=== PATIENT | female | born 1945 | race Hispanic/Latino ===

== ENCOUNTER 2017-03-02 17:23 | Inpatient (IN) | payer MEDICARE, OTHER ==
[2017-03-02 17:24] VITALS: BMI 29.2
[2017-03-02] MEDS ORDERED: Aspirin 325 mg EC Tablets PO STA (17:29)
[2017-03-02] MEDS ORDERED: Heparin25000 units/250ml 1/2NS 25,000 UNITS/250 ML BAG IV STA (17:29)
--- NOTE | 2017-03-02 17:33 | C.PDOC ---
History Of Present Illness 72-year-old female, PMHx includes Hypertension and Diabetes, presents to the emergency department via EMS with complaints of chest pain. patient states she has been experiencing left-sided chest pain that started at 01:00 this morning. Pain is waxing/waning in nature, gradually worsening. Patient notes associated nausea, and denies Hx of similar. EMS reports gave patient 324 ASA and 250mL fluids. Patients initial BP showed 80/40, and repeat 158/75. Denies numbness/ weakness, vomiting, fevers, chills, dizziness, back pain, or any other associated symptoms. No other complaints at this time. PMD Tawanda Bennett MD. Chief Complaint (Nursing): Chest Pain Past Medical History Vital Signs: Last Vital Signs Temp 97.9 F 03/02/17 17:25 Pulse 70 03/02/17 17:42 Resp 18 03/02/17 17:42 BP 171/92 H 03/02/17 17:42 Pulse Ox 100 03/02/17 17:42 - Medical History PMH: Anemia, Anxiety, Arthritis (NECK AND BACK), Asthma, Diverticulitis, HTN, Hypercholesterolemia (Does not take medications), Pneumonia, Sleep Apnea Denies: Chronic Kidney Disease Family History: States: Unknown Family Hx - Social History Hx Alcohol Use: No Hx Substance Use: No - Immunization History Hx Influenza Vaccination: No Hx Pneumococcal Vaccination: No Review Of Systems Except As Marked, All Systems Reviewed And Found Negative. Constitutional: Negative for: Fever, Chills Cardiovascular: Positive for: Chest Pain Respiratory: Negative for: Shortness of Breath Gastrointestinal: Positive for: Nausea. Negative for: Vomiting, Abdominal Pain Musculoskeletal: Negative for: Back Pain Neurological: Negative for: Weakness, Numbness, Headache, Dizziness Physical Exam - Physical Exam Appears: Non-toxic, No Acute Distress Skin: Warm, Dry, No Rash Head: Atraumatic, Normacephalic Eye(s): bilateral: Normal Inspection, PERRL Nose: Normal Oral Mucosa: Moist Lips: Normal Appearing Neck: Normal ROM Chest: Symmetrical Cardiovascular: Rhythm Regular, No Murmur Respiratory: Normal Breath Sounds, No Accessory Muscle Use Gastrointestinal/Abdominal: Soft, No Tenderness Extremity: Normal ROM Neurological/Psych: Oriented x3, Normal Speech, Other (no focal def) ED Course And Treatment - Laboratory Results Result Diagrams: 03/02/17 17:34 03/02/17 17:34 ECG: Interpreted By Me ECG Rhythm: ST/T Changes ECG Interpretation: Abnormal Interpretation Of ECG: INF WALL OR Rate From EC - Radiology CXR: Interpreted by Me CXR Interpretation: Yes: No Acute Disease Progress - Re-Evaluation Re-evaluation Note: 03/02/17 17:19 D/W DR BOYD ADVISED OF EMS EKG. PT EN ROUTE TO ER. WANTS CALLB 03/02/17 17:23 d/w dr boyd AWARE OF ER FINDINGS. BRILLENTA, HEPARIN, PT TO CATH 03/02/17 17:30 D/W DR Tawanda ROA MED ACTIMIZE ARCHITECT WILL ADMIT PT STATES PRIOR HO "MILD ALLERGY" TO CT DYE. SOLUMEDROL GIVEN; DR SIMMONS AT BEDSIDE AND AWARE, STATES SHE WILL ADVISE DR VINSON OF ALLERGY AND SOLU-MEDROL GIVEN 03/02/17 17:35 03/02/17 17:35 - Data Reviewed Data Reviewed: Lab, Diagnostic imaging, EKG Disposition Counseled Patient/Family Regarding: Studies Performed, Diagnosis - Disposition Disposition: HOSPITALIZED Disposition Time: 17:33 Condition: SERIOUS - POA Present On Arrival: None - Clinical Impression Clinical Impression: STEMI (ST elevation myocardial infarction) - Scribe Statement The provider has reviewed the documentation as recorded by the Scribe (Tristen Ritter) All medical record entries made by the Scribe were at my direction and personally dictated by me. I have reviewed the chart and agree that the record accurately reflects my personal performance of the history, physical exam, medical decision making, and the department course for this patient. I have also personally directed, reviewed, and agree with the discharge instructions and disposition. Decision To Admit - Pt Status Changed To: Hospital Disposition Of: Inpatient - Admit Certification Admit to Inpatient:: After my assessment, the patient will require hospitalization for at least two midnights. This is because of the severity of symptoms shown, intensity of services needed, and/or the medical risk in this patient being treated as an outpatient. - InPatient: Physician Admission Certification: I certify that this patient requires 2 or more midnights of care for the following reason:: SEE NOTE - . Bed Request Type: ICU Admitting Physician: Anthony Roa Patient Diagnosis: STEMI (ST elevation myocardial infarction)
[2017-03-02 17:41] LABS: BASO # 0.1 K/uL (0.0-0.2); BASO % 0.5 % (0.0-2.0); EOS # 0.7 K/uL (0.0-0.7); EOS % 4.7 % (0.0-4.0); HEMATOCRIT 44.5 % (34.0-47.0); LYMPH # 6.2 K/uL (1.0-4.3); LYMPH % 44.5 % (20.0-40.0); MEAN CELL VOLUME 90.8 fL (81.0-99.0); MEAN CORPUSCULAR HEMOGLOBIN 31.4 pg (27.0-31.0); MEAN CORPUSCULAR HGB CONC 34.5 g/dL (33.0-37.0); MEAN PLATELET VOLUME 8.7 fL (7.2-11.7); MONO # 1.4 K/uL (0.0-0.8); MONO % 9.7 % (0.0-10.0); NRBC % 0.1 % (0.0-2.0)
[2017-03-02] MEDS ORDERED: DiphenhydrAMINE 50 mg/ml Inj ONE (17:42)
[2017-03-02] MEDS ORDERED: Lidocaine 2 Grams in D5W 0 MG/0 ML BAG IV ONE (17:45)
[2017-03-02] MEDS ORDERED: Midazolam 2 MG/2 ML VIAL ONE (17:45)
[2017-03-02] MEDS ORDERED: Phenylephrine 10 mg/ml Inj ONE (17:45)
[2017-03-02] MEDS ORDERED: Iodixanol 320 MG/ML 100 ML BOTTLE IV ONE ×2 (17:45→18:33)
[2017-03-02] MEDS ORDERED: Nitroglycerin 50mg in D5W 50 MG/250 ML BOTTLE IV ONE (17:48)
[2017-03-02 17:50] LABS: CHLORIDE 97 mmol/L (98-107); SODIUM 137 mmol/L (132-148)
[2017-03-02 17:52] LABS: GFR AFRICAN-AMERICAN > 60
[2017-03-02 17:53] LABS: ALB/GLOB RATIO 1.4 (1.0-2.1); ALKALINE PHOSPHATASE 80 U/L (38-126); ALT/SGPT 23 U/L (9-52); AST/SGOT 22 U/L (14-36); BILIRUBIN,TOTAL 0.7 mg/dL (0.2-1.3); BLOOD UREA NITROGEN 12 mg/dL (7-17); CARBON DIOXIDE 23 mmol/L (22-30); GLUCOSE,RANDOM 122 mg/dL (65-105); TOTAL PROTEIN 7.3 g/dL (6.3-8.3)
--- NOTE | 2017-03-02 17:53 | RAD ---
PROCEDURE: CHEST RADIOGRAPH, 1 VIEW be made. Note that the right lung apex is partially obscured by overlying facial soft tissue and mandible artifact HISTORY: chest pain COMPARISON: None available. FINDINGS: LUNGS: Suspect minimal bibasilar atelectasis PLEURA: No pneumothorax or pleural fluid seen. CARDIOVASCULAR: Heart size appears mildly enlarged OSSEOUS STRUCTURES: No significant abnormalities. VISUALIZED UPPER ABDOMEN: Normal. OTHER FINDINGS: None. IMPRESSION: Suspect minor bibasilar atelectasis
[2017-03-02 17:54] LABS: CALCIUM 9.4 mg/dl (8.6-10.4)
[2017-03-02] MEDS ORDERED: DiphenhydrAMINE 50 mg/ml Inj IVP STA (17:58)
[2017-03-02] MEDS ORDERED: Potassium Chloride 20 mEq ER Tab PO ONE (18:08)
[2017-03-02] MEDS ORDERED: Eptifibatide 20 mg/10mL Inj IVP ONE (18:31)
--- NOTE | 2017-03-02 18:45 | CP.PCM.CON ---
History of Present Illness - History of Present Illness History of Present Illness: I was asked to evaluate pateint for [facility]. Patient is a 72 year old female with a history of HTN who presents with chest pain. By report symptoms initially began at 1 am, however became inermittent throughout the day. She presented with worsening chest pain. EKG revealed acute inferior wall myocardial infarction, discussed with emergency room attending at 17:18 at which point patient was still en route. Patient was givne loading dose of Brilinta, ASA, Heparin. Review of Systems - Constitutional Constitutional: absent: As Per HPI, Anorexia, Chills, Daytime Sleepiness, Excessive Sweating, Fatigue, Fever, Frequent Falls, Headache, Increased Appetite , Lethargy, Malaise, Night Sweats, Snoring, Sleep Apnea, Weight Gain, Weight Loss, Weakness, Other - EENT Eyes: absent: As Per HPI, Blind Spots, Blurred Vision, Change in Vision, Decreased Night Vision, Diplopia, Discharge, Dry Eye, Exophthalmos, Floaters, Irritation, Itchy Eyes, Loss of Peripheral Vision, Pain, Photophobia, Requires Corrective Lenses, Sees Flashes, Spots in Vision, Tunnel Vision, Other Visual Disturbances, Loss of Vision, Other Ears: absent: As Per HPI, Decreased Hearing, Ear Discharge, Ear Pain, Tinnitus, Abnormal Hearing, Disequilibrium, Dizziness, Other Nose/Mouth/Throat: absent: As Per HPI, Epistaxis, Nasal Congestion, Nasal Discharge, Nasal Obstruction, Nasal Trauma, Nose Pain, Post Nasal Drip, Sinus Pain, Sinus Pressure, Bleeding Gums, Change in Voice, Dental Pain, Dry Mouth, Dysphagia, Halitosis, Hoarsness, Lip Swelling, Mouth Lesions, Mouth Pain, Odynophagia, Sore Throat, Throat Swelling, Tongue Swelling, Facial Pain, Neck Pain, Neck Mass, Other - Breasts Breasts: absent: As Per HPI, Change in Shape, Mass, Pain, Nipple Discharge, Nipple Inversion, Skin Changes, Swelling, Other - Cardiovascular Cardiovascular: Chest Pain, Dyspnea - Respiratory Respiratory: absent: As Per HPI, Cough, Dyspnea, Hemoptysis, Dyspnea on Exertion , Wheezing, Snoring, Stridor, Pain on Inspiration, Chest Congestion, Excessive Mucous Production, Change in Mucous Color, Pain with Coughing, Other - Gastrointestinal Gastrointestinal: absent: As Per HPI, Abdominal Pain, Belching, Bloating, Change in Bowel Habits, Change in Stool Character, Coffee Ground Emesis, Constipation, Cramping, Diarrhea, Dyspepsia, Dysphagia, Early Satiety, Excessive Flatus, Fecal Incontinence, Heartburn, Hematemesis, Hematochezia, Loose Stools, Melena, Nausea, Odynophagia, Temesmus, Vomiting, Other - Genitourinary Genitourinary: absent: As Per HPI, Change in Urinary Stream, Difficulty Urinating, Dysuria, Flank Pain, Hematuria, Pyuria, Nocturia, Urinary Incontinence, Urinary Frequency, Urinary Hesitance, Urinary Urgency, Voiding Freq/Small Amts, Freq UTI, Hx Renal/Bladder Calculi, Hx /Renal Surgery, Bladder Distension, Other - Musculoskeletal Musculoskeletal: absent: As Per HPI, Abnormal Gait, Arthralgias, Atrophy, Back Pain, Deformity, Joint Swelling, Limited Range of Motion, Loss of Height, Muscle Cramps, Muscle Weakness, Myalgias, Neck Pain, Numbness, Radiating Pain into Limb, Stiffness, Tingling, Other - Integumentary Integumentary: absent: As Per HPI, Acne, Alopecia, Bleeding Lesions, Change in Hair, Change in Nails, Change in Pigmentation, Changing Lesions, Dry Skin, Erythema, Furuncle, Hirsutism, Lesions, New Lesions, Non-Healing Lesions, Photosensitivity, Pruritus, Rash, Skin Pain, Skin Ulcer, Sores, Striae, Swelling , Unusual Bruising, Wounds, Jaundice, Other - Neurological Neurological: absent: As Per HPI, Abnormal Gait, Abnormal Hearing, Abnormal Movements, Abnormal Speech, Behavioral Changes, Burning Sensations, Confusion, Convulsions, Disequilibrium, Dizziness, Numbness, Focal Weakness, Frequent Falls , Headaches, Lack of Coordination, Loss of Vision, Memory Loss, Paresthesias, Radicular Pain, Restless Legs, Sensory Deficit, Syncope, Tingling, Tremor, Vertigo, Weakness, Other Visual Disturbances, Other - Psychiatric Psychiatric: absent: As Per HPI, Abnormal Sleep Pattern, Anhedonia, Anxiety, Auditory Hallucinations, Behavioral Changes, Change in Appetite, Change in Libido, Confusion, Depression, Difficulty Concentrating, Hallucinations, Homicidal Ideation, Hopelessness, Irritability, Memory Loss, Mood Swings, Panic Attacks, Paranoia, Suicidal Ideation, Visual Hallucinations, Tactile Hallucinations, Other - Endocrine Endocrine: absent: As Per HPI, Change in Body Appearance, Change in Libido, Cold Intolorance, Deepening of Voice, Excessive Sweating, Fatigue, Flushing, Heat Intolorance, Increase in Ring/Shoe/Hat Size, Palpitations, Polydipsia, Polyphagia, Polyuria, Other - Hematologic/Lymphatic Hematologic: absent: As Per HPI, Easy Bleeding, Easy Bruising, Lymphadenopathy, Other Past Patient History - Infectious Disease Hx of Infectious Diseases: None - Tetanus Immunizations Tetanus Immunization: Unknown - Past Medical History & Family History Past Medical History?: Yes - Past Social History Smoking Status: Never Smoked - CARDIAC Hx Hypercholesterolemia: Yes (Does not take medications) Hx Hypertension: Yes - PULMONARY Hx Asthma: Yes Hx Pneumonia: Yes Hx Sleep Apnea: Yes - NEUROLOGICAL Hx Neurological Disorder: No - HEENT Hx HEENT Problems: Yes Hx Cataracts: Yes (BILATERAL) Other/Comment: DETACHED RETINA-RIGHT - RENAL Hx Chronic Kidney Disease: No - ENDOCRINE/METABOLIC Hx Endocrine Disorders: No - HEMATOLOGICAL/ONCOLOGICAL Hx Anemia: Yes - INTEGUMENTARY Hx Dermatological Problems: No - MUSCULOSKELETAL/RHEUMATOLOGICAL Hx Arthritis: Yes (NECK AND BACK) - GASTROINTESTINAL Hx Diverticulitis: Yes - GENITOURINARY/GYNECOLOGICAL Hx Genitourinary Disorders: No Hx Urinary Tract Infection: Yes Other/Comment: Chronic cystitis - PSYCHIATRIC Hx Anxiety: Yes Hx Substance Use: No - SURGICAL HISTORY Hx Surgeries: Yes Hx Cataract Extraction: Yes Hx Eye Surgery: Yes (LYUDMILA CATARACT;DETACHED RETINA) Hx Hysterectomy: Yes Other/Comment: COLON RESECTION. RIGHT CARPAL TUNNEL - ANESTHESIA Hx Anesthesia: Yes Hx Anesthesia Reactions: No Hx Malignant Hyperthermia: No Meds Allergies/Adverse Reactions: Allergies Allergy/AdvReac Type Severity Reaction Status Date / Time ciprofloxacin [From Cipro] Allergy RASH Verified 03/02/17 18:04 ciprofloxacin HCl Allergy RASH Verified 03/02/17 18:04 [From Cipro] iodine Allergy RASH Verified 03/02/17 18:04 ondansetron HCl Allergy ANAPHYLAXIS Verified 03/02/17 18:04 [From Zofran (as hydrochloride)] pneumococcal vaccine Allergy RASH Verified 03/02/17 18:04 hydromorphone HCl AdvReac Intermediate ANAPHYLAXIS Verified 03/02/17 18:04 [From Dilaudid] - Medications Medications: Current Medications Heparin Sodium/Sodium Chloride (Heparin 60152 Units/250ml 1/2 Normal Saline) 25 ,000 units in 250 mls @ 9.253 mls/hr IV .Q0M STA; 12 UNITS/KG/HR PRN Reason: Protocol Stop: 03/03/17 20:30 Last Admin: 03/02/17 17:25 Dose: 12 units/kg/hr, 9.253 mls/hr Physical Exam - Constitutional Appears: Non-toxic - Head Exam Head Exam: NORMAL INSPECTION - Eye Exam Eye Exam: Normal appearance - ENT Exam ENT Exam: Mucous Membranes Moist - Neck Exam Neck exam: Positive for: Full Rom - Respiratory Exam Respiratory Exam: NORMAL BREATHING PATTERN - Cardiovascular Exam Cardiovascular Exam: REGULAR RHYTHM - GI/Abdominal Exam GI & Abdominal Exam: Normal Bowel Sounds - Rectal Exam Rectal Exam: Deferred - Extremities Exam Extremities exam: Negative for: pedal edema - Back Exam Back exam: NORMAL INSPECTION - Neurological Exam Neurological exam: Alert, Oriented x3 - Psychiatric Exam Psychiatric exam: Normal Affect - Skin Skin Exam: Normal Color Results - Vital Signs Recent Vital Signs: Last Vital Signs Temp 97.9 F 03/02/17 17:25 Pulse 70 03/02/17 17:42 Resp 18 03/02/17 17:42 BP 171/92 H 03/02/17 17:42 Pulse Ox 100 03/02/17 17:42 - Labs Result Diagrams: 03/02/17 17:34 03/02/17 17:34 Labs: Laboratory Results - last 24 hr 03/02/17 03/02/17 03/02/17 17:34 17:34 17:34 WBC 14.0 H RBC 4.90 Hgb 15.4 Hct 44.5 MCV 90.8 MCH 31.4 H MCHC 34.5 RDW 13.0 Plt Count 273 MPV 8.7 Neut % (Auto) 40.6 L Lymph % (Auto) 44.5 H Real % (Auto) 9.7 Eos % (Auto) 4.7 H Baso % (Auto) 0.5 Neut # 5.7 Lymph # 6.2 H Real # 1.4 H Eos # 0.7 Baso # 0.1 PT 11.0 INR 1.0 APTT 27 Sodium 137 Potassium 3.0 L Chloride 97 L Carbon Dioxide 23 Anion Gap 21 H BUN 12 Creatinine 0.9 Est GFR ( Amer) > 60 Est GFR (Non-Af Amer) > 60 Random Glucose 122 H Calcium 9.4 Total Bilirubin 0.7 AST 22 ALT 23 Alkaline Phosphatase 80 Troponin I Total Protein 7.3 Albumin 4.3 Globulin 3.0 Albumin/Globulin Ratio 1.4 Blood Type Antibody Screen 03/02/17 03/02/17 17:34 17:34 WBC RBC Hgb Hct MCV MCH MCHC RDW Plt Count MPV Neut % (Auto) Lymph % (Auto) Real % (Auto) Eos % (Auto) Baso % (Auto) Neut # Lymph # Real # Eos # Baso # PT INR APTT Sodium Potassium Chloride Carbon Dioxide Anion Gap BUN Creatinine Est GFR ( Amer) Est GFR (Non-Af Amer) Random Glucose Calcium Total Bilirubin AST ALT Alkaline Phosphatase Troponin I 0.0270 Total Protein Albumin Globulin Albumin/Globulin Ratio Blood Type O NEGATIVE Antibody Screen Negative - EKG Data EKG Interpreted by: Myself EKG shows normal: Sinus rhythm - EKG Data EKG Specific Queries ST Segment Elevation in: II, III, AVF Assessment & Plan (1) STEMI (ST elevation myocardial infarction) Assessment and Plan: patient will be taken emergently to the cardiac catheter builder. All risks and benefits were fully discussed with the patient in detail. Givne the emergent status of the patient will proceed with cardiac cath. Status: Acute
--- NOTE | 2017-03-02 18:53 | CP.PCM.PN ---
Subjective - Date & Time of Evaluation Date of Evaluation: 03/02/17 Time of Evaluation: 18:45 - Subjective Subjective: Cardiac cath and intervention performed. LM mild disease LAD small vessel diffuse disease LCx small vessel diffuse disease RCA large caliber vessel. 99% thrombotic occlusion in the proximal RCA Xience 3.5 x 33mm drug eluting stent placed successfully. LVEF 50% mild posterobasal hypokinesis. Plan Admit to ICU ASA/Brilinta Medical therapy. echocardiogram. Objective - Vital Signs/Intake and Output Vital Signs (last 24 hours): Temp Pulse Resp BP Pulse Ox 97.9 F 70 18 171/92 H 100 03/02/17 17:25 03/02/17 17:42 03/02/17 17:42 03/02/17 17:42 03/02/17 17:42 - Medications Medications: Current Medications Heparin Sodium/Sodium Chloride (Heparin 39948 Units/250ml 1/2 Normal Saline) 25 ,000 units in 250 mls @ 9.253 mls/hr IV .Q0M STA; 12 UNITS/KG/HR PRN Reason: Protocol Stop: 03/03/17 20:30 Last Admin: 03/02/17 17:25 Dose: 12 units/kg/hr, 9.253 mls/hr - Labs Labs: 03/02/17 17:34 03/02/17 17:34 PT 11.0 SECONDS (9.7-12.2) 03/02/17 17:34 INR 1.0 03/02/17 17:34 APTT 27 SECONDS (21-34) 03/02/17 17:34 Assessment and Plan (1) STEMI (ST elevation myocardial infarction) Status: Acute
[2017-03-02] MEDS ORDERED: Sodium Chloride 0.9% 1,000 ML IV SCH (19:00)
[2017-03-02] MEDS ORDERED: Fluticasone Nasal 50 mcg/Spray NAS PRN (20:08)
--- NOTE | 2017-03-02 20:10 | CP.PCM.HP ---
History of Present Illness - History of Present Illness History of Present Illness: A 72-year-old female with a P/M/Hanemia, anxiety, arthritis, asthma, diverticulosis, HTN, hypercholesterolemia, sleep apnea presented with chief complaint of left-sided chest pain since 01: 00TAM today morning. The chest pain was excruciating, Intermittent, occurred at rest, waxing and waning in nature without radiation to the left arm.No associated C/O-shortness of breath, perspiration, palpitation, cough. Past Patient History - Infectious Disease Hx of Infectious Diseases: None - Tetanus Immunizations Tetanus Immunization: Unknown - Past Medical History & Family History Past Medical History?: Yes - Past Social History Smoking Status: Never Smoked - CARDIAC Hx Hypercholesterolemia: Yes (Does not take medications) Hx Hypertension: Yes - PULMONARY Hx Asthma: Yes Hx Pneumonia: Yes Hx Sleep Apnea: Yes - NEUROLOGICAL Hx Neurological Disorder: No - HEENT Hx HEENT Problems: Yes Hx Cataracts: Yes (BILATERAL) Other/Comment: DETACHED RETINA-RIGHT - RENAL Hx Chronic Kidney Disease: No - ENDOCRINE/METABOLIC Hx Endocrine Disorders: No - HEMATOLOGICAL/ONCOLOGICAL Hx Anemia: Yes - INTEGUMENTARY Hx Dermatological Problems: No - MUSCULOSKELETAL/RHEUMATOLOGICAL Hx Arthritis: Yes (NECK AND BACK) - GASTROINTESTINAL Hx Diverticulitis: Yes - GENITOURINARY/GYNECOLOGICAL Hx Genitourinary Disorders: No Hx Urinary Tract Infection: Yes Other/Comment: Chronic cystitis - PSYCHIATRIC Hx Anxiety: Yes Hx Substance Use: No - SURGICAL HISTORY Hx Surgeries: Yes Hx Cataract Extraction: Yes Hx Eye Surgery: Yes (LYUDMILA CATARACT;DETACHED RETINA) Hx Hysterectomy: Yes Other/Comment: COLON RESECTION. RIGHT CARPAL TUNNEL - ANESTHESIA Hx Anesthesia: Yes Hx Anesthesia Reactions: No Hx Malignant Hyperthermia: No Meds Home Medications: Home Medication List Medication Instructions Recorded Confirmed Type Aspirin [Ecotrin] 81 mg PO DAILY tabec 03/04/17 Rx Losartan [Cozaar] 25 mg PO DAILY #30 tab 03/04/17 Rx Metoprolol Succinate [Toprol Xl] 25 mg PO DAILY #30 tab.er.24h 03/04/17 Rx Rosuvastatin Calcium [Crestor] 10 mg PO HS #30 tab 03/04/17 Rx Ticagrelor [Brilinta] 90 mg PO BID #60 tab 03/04/17 Rx Allergies/Adverse Reactions: Allergies Allergy/AdvReac Type Severity Reaction Status Date / Time ciprofloxacin [From Cipro] Allergy RASH Verified 03/02/17 18:04 ciprofloxacin HCl Allergy RASH Verified 03/02/17 18:04 [From Cipro] iodine Allergy RASH Verified 03/02/17 18:04 ondansetron HCl Allergy ANAPHYLAXIS Verified 03/02/17 18:04 [From Zofran (as hydrochloride)] pneumococcal vaccine Allergy RASH Verified 03/02/17 18:04 hydromorphone HCl AdvReac Intermediate ANAPHYLAXIS Verified 03/02/17 18:04 [From Dilaudid] Physical Exam - Constitutional Appears: Well - Head Exam Head Exam: ATRAUMATIC, NORMAL INSPECTION, NORMOCEPHALIC - Eye Exam Eye Exam: EOMI, Normal appearance, PERRL Pupil Exam: NORMAL ACCOMODATION, PERRL - ENT Exam ENT Exam: Mucous Membranes Moist, Normal Exam - Neck Exam Neck exam: Positive for: Normal Inspection - Respiratory Exam Respiratory Exam: Decreased Breath Sounds - Cardiovascular Exam Cardiovascular Exam: REGULAR RHYTHM, +S1, +S2 - GI/Abdominal Exam GI & Abdominal Exam: Diminished Bowel Sounds, Soft - Rectal Exam Rectal Exam: Deferred Results - Vital Signs Recent Vital Signs: Last Vital Signs Temp 97.9 F 03/02/17 17:25 Pulse 70 03/02/17 17:42 Resp 18 03/02/17 17:42 BP 171/92 H 03/02/17 17:42 Pulse Ox 100 03/02/17 17:42 - Labs Result Diagrams: 03/04/17 06:26 03/04/17 06:26 Labs: Laboratory Results - last 24 hr 03/02/17 03/02/17 03/02/17 17:34 17:34 17:34 WBC 14.0 H RBC 4.90 Hgb 15.4 Hct 44.5 MCV 90.8 MCH 31.4 H MCHC 34.5 RDW 13.0 Plt Count 273 MPV 8.7 Neut % (Auto) 40.6 L Lymph % (Auto) 44.5 H Calhoun % (Auto) 9.7 Eos % (Auto) 4.7 H Baso % (Auto) 0.5 Neut # 5.7 Lymph # 6.2 H Cal[place]oun # 1.4 H Eos # 0.7 Baso # 0.1 PT 11.0 INR 1.0 APTT 27 Sodium 137 Potassium 3.0 L Chloride 97 L Carbon Dioxide 23 Anion Gap 21 H BUN 12 Creatinine 0.9 Est GFR ( Amer) > 60 Est GFR (Non-Af Amer) > 60 Random Glucose 122 H Calcium 9.4 Total Bilirubin 0.7 AST 22 ALT 23 Alkaline Phosphatase 80 Troponin I Total Protein 7.3 Albumin 4.3 Globulin 3.0 Albumin/Globulin Ratio 1.4 Blood Type Antibody Screen 03/02/17 03/02/17 17:34 17:34 WBC RBC Hgb Hct MCV MCH MCHC RDW Plt Count MPV Neut % (Auto) Lymph % (Auto) Cal[place]oun % (Auto) Eos % (Auto) Baso % (Auto) Neut # Lymph # Calhoun # Eos # Baso # PT INR APTT Sodium Potassium Chloride Carbon Dioxide Anion Gap BUN Creatinine Est GFR ( Amer) Est GFR (Non-Af Amer) Random Glucose Calcium Total Bilirubin AST ALT Alkaline Phosphatase Troponin I 0.0270 Total Protein Albumin Globulin Albumin/Globulin Ratio Blood Type O NEGATIVE Antibody Screen Negative
--- NOTE | 2017-03-02 21:50 | CP.PCM.CON ---
History of Present Illness - History of Present Illness History of Present Illness: 72 F with h/o HTN, chronic back pain, h/o dyspepsia, nasal allergies, went to urgent care around 1pm for chest pain, patient also mentions some intermittent pain this am but got more intense around 1 pm with diaphoresis, in the amblance EKG suggested Infe-lateral STEMI. Patient is being observed post cath PCI in RCA 99% occluded, had some left main disease, diffuse disease of LAD and CX but small vessels, LVEF 50%. Patient is currently pain free denies any complains other than local some discomfort in the right groin. Patient had h/o iodine allergy hence prepared with solumedrol 125mg, pepcid and benadryl prior to cath. PMH as above PSH hysterctomy and oophorectomy, retinal detachment in right eye, cataract surg , Meds reviewed Allergies noticed, patient got dilaudid and ondensetron at same time when she had back injection but developed low pulse with above, iodine allergy Family history denied history in the parents for stroke or CAD Social denies smoking, alcohol, illicit drugs Review of Systems - Review of Systems All systems: reviewed and no additional remarkable complaints except (HPI) Past Patient History - Infectious Disease Hx of Infectious Diseases: None - Tetanus Immunizations Tetanus Immunization: Unknown - Past Medical History & Family History Past Medical History?: Yes - Past Social History Smoking Status: Never Smoked Drugs: Denies Home Situation {Lives}: With Family - CARDIAC Hx Heart Attack: Yes Hx Hypercholesterolemia: Yes (Does not take medications) Hx Hypertension: Yes - PULMONARY Hx Respiratory Disorders: Yes Hx Asthma: Yes Hx Pneumonia: Yes Hx Sleep Apnea: Yes - NEUROLOGICAL Hx Neurological Disorder: No - HEENT Hx HEENT Problems: Yes Hx Cataracts: Yes (BILATERAL) Other/Comment: DETACHED RETINA-RIGHT - RENAL Hx Chronic Kidney Disease: No - ENDOCRINE/METABOLIC Hx Endocrine Disorders: No - HEMATOLOGICAL/ONCOLOGICAL Hx Anemia: Yes - INTEGUMENTARY Hx Dermatological Problems: No - MUSCULOSKELETAL/RHEUMATOLOGICAL Hx Arthritis: Yes (NECK AND BACK) Hx Falls: No - GASTROINTESTINAL Hx Diverticulitis: Yes - GENITOURINARY/GYNECOLOGICAL Hx Genitourinary Disorders: No Hx Urinary Tract Infection: Yes Other/Comment: Chronic cystitis - PSYCHIATRIC Hx Anxiety: Yes Hx Depression: Yes Hx Substance Use: No - SURGICAL HISTORY Hx Surgeries: Yes Hx Cataract Extraction: Yes Hx Eye Surgery: Yes (LYUDMILA CATARACT;DETACHED RETINA) Hx Hysterectomy: Yes Other/Comment: COLON RESECTION. RIGHT CARPAL TUNNEL - ANESTHESIA Hx Anesthesia: Yes Hx Anesthesia Reactions: No Hx Malignant Hyperthermia: No Meds Allergies/Adverse Reactions: Allergies Allergy/AdvReac Type Severity Reaction Status Date / Time ciprofloxacin [From Cipro] Allergy RASH Verified 03/02/17 18:04 ciprofloxacin HCl Allergy RASH Verified 03/02/17 18:04 [From Cipro] iodine Allergy RASH Verified 03/02/17 18:04 ondansetron HCl Allergy ANAPHYLAXIS Verified 03/02/17 18:04 [From Zofran (as hydrochloride)] pneumococcal vaccine Allergy RASH Verified 03/02/17 18:04 hydromorphone HCl AdvReac Intermediate ANAPHYLAXIS Verified 03/02/17 18:04 [From Dilaudid] - Medications Medications: Current Medications Acetaminophen (Tylenol 325mg Tab) 650 mg PO Q6 PRN PRN Reason: Pain, moderate (4-7) Alprazolam (Xanax) 0.25 mg PO HS PRN PRN Reason: Anxiety Stop: 03/09/17 20:09 Aspirin (Ecotrin) 81 mg PO DAILY JO Docusate Sodium (Colace) 100 mg PO BID JO Docusate Sodium (Colace) 200 mg PO DAILY PRN PRN Reason: Constipation Fluticasone Propionate (Flonase) 2 spr KENNEDY DAILY PRN PRN Reason: Allergy symptoms Home Med (Budesonide/Formoterol Fumarate [Symbicort 80-4.5 Mcg Inhaler]) 2 puff IH Q12H JO Sodium Chloride (Sodium Chloride 0.9%) 1,000 mls @ 100 mls/hr IV .Q10H JO Stop: 03/03/17 02:00 Losartan Potassium (Cozaar) 12.5 mg PO DAILY JO Pantoprazole Sodium (Protonix Ec Tab) 40 mg PO DAILY JO Rosuvastatin Calcium (Crestor) 10 mg PO HS JO Ticagrelor (Brilinta) 90 mg PO BID JO Physical Exam - Additional Findings Additional findings: * HEENT NATHAN * Neck Supple * Chest Clear * CVS Regular, no gallop or rub * PA soft, nt bs present * Ext no edema, right groin mild swelling no active oozing, both feet cold very feeble pulse * Skin normal turgor * 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 Results - Vital Signs Recent Vital Signs: Last Vital Signs Temp 97.9 F 03/02/17 17:25 Pulse 70 03/02/17 17:42 Resp 18 03/02/17 17:42 BP 171/92 H 03/02/17 17:42 Pulse Ox 100 03/02/17 17:42 - Labs Result Diagrams: 03/02/17 17:34 03/02/17 17:34 Labs: Laboratory Results - last 24 hr 03/02/17 03/02/17 03/02/17 17:34 17:34 17:34 WBC 14.0 H RBC 4.90 Hgb 15.4 Hct 44.5 MCV 90.8 MCH 31.4 H MCHC 34.5 RDW 13.0 Plt Count 273 MPV 8.7 Neut % (Auto) 40.6 L Lymph % (Auto) 44.5 H Finney % (Auto) 9.7 Eos % (Auto) 4.7 H Baso % (Auto) 0.5 Neut # 5.7 Lymph # 6.2 H Finney # 1.4 H Eos # 0.7 Baso # 0.1 PT 11.0 INR 1.0 APTT 27 Sodium 137 Potassium 3.0 L Chloride 97 L Carbon Dioxide 23 Anion Gap 21 H BUN 12 Creatinine 0.9 Est GFR ( Amer) > 60 Est GFR (Non-Af Amer) > 60 Random Glucose 122 H Calcium 9.4 Total Bilirubin 0.7 AST 22 ALT 23 Alkaline Phosphatase 80 Troponin I Total Protein 7.3 Albumin 4.3 Globulin 3.0 Albumin/Globulin Ratio 1.4 Blood Type Antibody Screen 03/02/17 03/02/17 17:34 17:34 WBC RBC Hgb Hct MCV MCH MCHC RDW Plt Count MPV Neut % (Auto) Lymph % (Auto) Finney % (Auto) Eos % (Auto) Baso % (Auto) Neut # Lymph # Finney # Eos # Baso # PT INR APTT Sodium Potassium Chloride Carbon Dioxide Anion Gap BUN Creatinine Est GFR ( Amer) Est GFR (Non-Af Amer) Random Glucose Calcium Total Bilirubin AST ALT Alkaline Phosphatase Troponin I 0.0270 Total Protein Albumin Globulin Albumin/Globulin Ratio Blood Type O NEGATIVE Antibody Screen Negative Assessment & Plan - Assessment and Plan (Free Text) Assessment: * Inferiolateral STEMI s/p RCA stent * Hypokalemia * H/o anxiety, back pain, htn * Multiple allergies noted above Plan: * Cardioprotective meds, asa, brilinta, statin, betablocker as tolerated in next few days, * Echo * Observe groin area by protocol * Labs * Replace potassium * See orders for detail.
[2017-03-03 06:53] LABS: BASO % 0.2 % (0.0-2.0); EOS % 0.1 % (0.0-4.0); LYMPH # 1.3 K/uL (1.0-4.3); LYMPH % 14.3 % (20.0-40.0); MEAN CELL VOLUME 91.8 fL (81.0-99.0); MEAN CORPUSCULAR HEMOGLOBIN 32.2 pg (27.0-31.0); MEAN PLATELET VOLUME 9.2 fL (7.2-11.7); MONO # 0.4 K/uL (0.0-0.8); MONO % 4.7 % (0.0-10.0); RED CELL DISTRIBUTION WIDTH 13.3 % (11.5-14.5)
[2017-03-03 07:14] LABS: ALB/GLOB RATIO 1.4 (1.0-2.1); ALKALINE PHOSPHATASE 50 U/L (38-126); ALT/SGPT 30 U/L (9-52); AST/SGOT 78 U/L (14-36); BILIRUBIN,TOTAL 0.6 mg/dL (0.2-1.3); BLOOD UREA NITROGEN 12 mg/dL (7-17); CALCIUM 8.4 mg/dl (8.6-10.4); CARBON DIOXIDE 22 mmol/L (22-30); CHLORIDE 102 mmol/L (98-107); GFR AFRICAN-AMERICAN > 60; GLUCOSE,RANDOM 127 mg/dL (65-105); MAGNESIUM 1.6 mg/dL (1.6-2.3); PHOSPHOROUS 3.7 mg/dL (2.5-4.5); POTASSIUM 3.8 mmol/L (3.6-5.2); SODIUM 135 mmol/L (132-148); TOTAL PROTEIN 5.8 g/dL (6.3-8.3)
[2017-03-03 07:45] LABS: THYROID STIMULATING HORMONE 0.78 mIU/L (0.46-4.68)
[2017-03-03 07:49] LABS: TROPONIN I 15.7 ng/mL (0.00-0.120)
--- NOTE | 2017-03-03 08:00 | CP.PCM.PN ---
Subjective - Date & Time of Evaluation Date of Evaluation: 03/03/17 Time of Evaluation: 07:35 - Subjective Subjective: patient has no chest pain. She has RLQ pain which predated cardiac cath Objective - Vital Signs/Intake and Output Vital Signs (last 24 hours): Temp Pulse Resp BP Pulse Ox 97.9 F 67 12 125/58 L 99 03/02/17 17:25 03/03/17 07:00 03/03/17 07:00 03/03/17 06:41 03/03/17 07:00 Intake and Output: 03/03/17 03/03/17 06:59 18:59 Intake Total 1000 100 Output Total 500 Balance 500 100 - Medications Medications: Current Medications Acetaminophen (Tylenol 325mg Tab) 650 mg PO Q6 PRN PRN Reason: Pain, moderate (4-7) Last Admin: 03/03/17 02:19 Dose: 650 mg Alprazolam (Xanax) 0.25 mg PO HS PRN PRN Reason: Anxiety Stop: 03/09/17 20:09 Last Admin: 03/02/17 23:47 Dose: 0.25 mg Aspirin (Ecotrin) 81 mg PO DAILY JO Docusate Sodium (Colace) 100 mg PO BID JO Docusate Sodium (Colace) 200 mg PO DAILY PRN PRN Reason: Constipation Fluticasone Propionate (Flonase) 2 spr KENNEDY DAILY PRN PRN Reason: Allergy symptoms Home Med (Budesonide/Formoterol Fumarate [Symbicort 80-4.5 Mcg Inhaler]) 2 puff IH Q12H JO Home Med (Gabapentin Enacarbil [Horizant]) 300 mg PO HS JO Losartan Potassium (Cozaar) 25 mg PO DAILY JO Metoprolol Succinate (Toprol Xl) 25 mg PO DAILY JO Pantoprazole Sodium (Protonix Ec Tab) 40 mg PO DAILY JO Rosuvastatin Calcium (Crestor) 10 mg PO HS JO Ticagrelor (Brilinta) 90 mg PO BID JO Tramadol HCl (Ultram) 50 mg PO Q6H PRN PRN Reason: Pain, severe (8-10) - Labs Labs: 03/03/17 06:50 03/03/17 06:50 PT 11.0 SECONDS (9.7-12.2) 03/02/17 17:34 INR 1.0 03/02/17 17:34 APTT 27 SECONDS (21-34) 03/02/17 17:34 - Constitutional Appears: Non-toxic - Head Exam Head Exam: NORMAL INSPECTION - Eye Exam Eye Exam: Normal appearance - ENT Exam ENT Exam: Mucous Membranes Moist - Neck Exam Neck Exam: Full ROM - Respiratory Exam Respiratory Exam: NORMAL BREATHING PATTERN - Cardiovascular Exam Cardiovascular Exam: REGULAR RHYTHM - GI/Abdominal Exam GI & Abdominal Exam: Normal Bowel Sounds - Rectal Exam Rectal Exam: Deferred - Extremities Exam Extremities Exam: Full ROM - Neurological Exam Neurological Exam: Alert, Oriented x3 - Psychiatric Exam Psychiatric exam: Normal Mood Assessment and Plan (1) STEMI (ST elevation myocardial infarction) Assessment & Plan: s/p PCI RCA. cont ASA 81 mg daily, Brilinta 90 mg BID, check echocardiogram today. can transfer to telemetry Status: Acute (2) Hypertension Assessment & Plan: add Toprol XL Status: Chronic (3) Hypercholesterolemia Assessment & Plan: LDL >200. statin therapy Status: Acute
[2017-03-03] MEDS ORDERED: Losartan 12.5 MG TAB PO SCH (10:00)
[2017-03-03] MEDS: Pantoprazole 40 mg EC Tab PO SCH (10:03)
[2017-03-03] MEDS: Metoprolol Succinate 25 mg XL Tab PO SCH (10:06)
--- NOTE | 2017-03-03 11:10 | CP.PCM.PN ---
<Kevin Bryan - Last Filed: 03/03/17 13:50> Subjective - Date & Time of Evaluation Date of Evaluation: 03/03/17 Time of Evaluation: 11:13 - Subjective Subjective: Pt seen and examined at bedside this AM; denies any symptoms currently; denies chest pain/sob. feels much better when compared to yesterday. Objective - Vital Signs/Intake and Output Vital Signs (last 24 hours): Temp Pulse Resp BP Pulse Ox 97.9 F 74 18 137/64 96 03/03/17 08:00 03/03/17 10:00 03/03/17 10:00 03/03/17 10:00 03/03/17 10:00 Intake and Output: 03/03/17 03/03/17 06:59 18:59 Intake Total 1000 400 Output Total 500 Balance 500 400 - Medications Medications: Current Medications Acetaminophen (Tylenol 325mg Tab) 650 mg PO Q6 PRN PRN Reason: Pain, moderate (4-7) Last Admin: 03/03/17 02:19 Dose: 650 mg Alprazolam (Xanax) 0.25 mg PO HS PRN PRN Reason: Anxiety Stop: 03/09/17 20:09 Last Admin: 03/02/17 23:47 Dose: 0.25 mg Aspirin (Ecotrin) 81 mg PO DAILY [facility] Last Admin: 03/03/17 10:03 Dose: 81 mg Docusate Sodium (Colace) 100 mg PO BID [facility] Last Admin: 03/03/17 10:03 Dose: 100 mg Docusate Sodium (Colace) 200 mg PO DAILY PRN PRN Reason: Constipation Fluticasone Propionate (Flonase) 2 spr KENNEDY DAILY PRN PRN Reason: Allergy symptoms Home Med (Budesonide/Formoterol Fumarate [Symbicort 80-4.5 Mcg Inhaler]) 2 puff IH Q12H [facility] Home Med (Gabapentin Enacarbil [Horizant]) 300 mg PO [facility] Losartan Potassium (Cozaar) 25 mg PO DAILY [facility] Last Admin: 03/03/17 10:03 Dose: 25 mg Metoprolol Succinate (Toprol Xl) 25 mg PO DAILY [facility] Last Admin: 03/03/17 10:06 Dose: 25 mg Pantoprazole Sodium (Protonix Ec Tab) 40 mg PO DAILY [facility] Last Admin: 03/03/17 10:03 Dose: 40 mg Rosuvastatin Calcium (Crestor) 10 mg PO HS JO Ticagrelor (Brilinta) 90 mg PO BID JO Last Admin: 03/03/17 10:03 Dose: 90 mg Tramadol HCl (Ultram) 50 mg PO Q6H PRN PRN Reason: Pain, severe (8-10) - Labs Labs: 03/03/17 06:50 03/03/17 06:50 PT 11.0 SECONDS (9.7-12.2) 03/02/17 17:34 INR 1.0 03/02/17 17:34 APTT 27 SECONDS (21-34) 03/02/17 17:34 - Constitutional Appears: Well, Non-toxic - Head Exam Head Exam: ATRAUMATIC, NORMAL INSPECTION - Eye Exam Eye Exam: EOMI - ENT Exam ENT Exam: Mucous Membranes Moist - Neck Exam Neck Exam: Full ROM. absent: Lymphadenopathy - Respiratory Exam Respiratory Exam: Clear to Ausculation Bilateral, NORMAL BREATHING PATTERN. absent: Rales, Rhonchi, Wheezes - Cardiovascular Exam Cardiovascular Exam: REGULAR RHYTHM, +S1, +S2. absent: Murmur - GI/Abdominal Exam GI & Abdominal Exam: Soft, Normal Bowel Sounds. absent: Tenderness Additional comments: no sign of hematoma at cath site - Extremities Exam Extremities Exam: Full ROM. absent: Calf Tenderness - Back Exam Back Exam: NORMAL INSPECTION. absent: CVA tenderness (L), CVA tenderness (R) - Neurological Exam Neurological Exam: Alert, Awake, Oriented x3 - Psychiatric Exam Psychiatric exam: Normal Affect Assessment and Plan - Assessment and Plan (Free Text) Assessment: 72yo F admitted for STEMI STEMI; resolving -Cardiac cath performed; Dr. Diaz; placed once stent in the RCA 99% occlusion -patients chest pain resolved -original EKG showed ST elevations in II, III, AVF with reciprocal changes -patient currently on aspirin, arb, low dose beta keyla, and statin for ACS protocol; patient will need to continue with brillanta/plavix for one year -patient tolerated procedure well; normotensive today in no acute distress -Lipid panel markedly elevated; lifestyle modification endorsed to patient as well as statin use -IGT; Hemoglobin A1c 5.7; patient will need to f/u in one year; lifestyle modifications -patient has hx of HTN; will need strict control -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 Tawanda Bryan PGY2 <Anthony Roa S - Last Filed: 04/07/17 18:03> Objective - Vital Signs/Intake and Output Vital Signs (last 24 hours): Temp Pulse Resp BP Pulse Ox 97.8 F 82 20 140/76 100 03/04/17 16:00 03/04/17 17:00 03/04/17 17:00 03/04/17 17:00 03/04/17 17:00 - Labs Labs: 03/04/17 06:26 03/04/17 06:26 PT 11.0 SECONDS (9.7-12.2) 03/02/17 17:34 INR 1.0 03/02/17 17:34 APTT 27 SECONDS (21-34) 03/02/17 17:34 Attending/Attestation - Attestation I have personally seen and examined this patient.: Yes I have fully participated in the care of the patient.: Yes I have reviewed all pertinent clinical information, including history, physical exam and plan: Yes Notes (Text): Patient examined at bedside. Patient currently symptomatic. PCI done in RCA. Continue anti-ischemic and antihypertensive medications.
--- NOTE | 2017-03-03 16:40 | CP.CCUPN ---
CCU Subjective - Physician Review Subjective (Free Text): Patient was seen and examined at bedside. Patient reports that she is doing well. Patient denies chest pain, SOB, palpitations, dizziness, abdominal pain, nausea and vomiting. Patient is ambulating and tolerating diet. Patient has no complaints at this time. Critical Care Time Spent (in minutes): 35 CCU Objective - Vital Signs / Intake & Output Vital Signs (Last 4 hours): Vital Signs Temp Pulse Resp BP Pulse Ox 03/03/17 16:00 98.8 F 68 20 147/67 98 03/03/17 15:00 75 19 137/62 97 03/03/17 14:00 76 20 132/54 L 96 03/03/17 13:00 72 19 146/71 97 Intake and Output (Last 8hrs): Intake & Output 03/03/17 03/03/17 03/03/17 06:59 14:59 22:59 Intake Total 800 1000 200 Output Total 500 325 Balance 300 675 200 Intake: Intake, IV Amount 800 800 200 Left Antecubital 800 800 200 Oral 200 Output: Urine 500 325 Urine, Voided 500 325 Other: # Voids Urine, Voided 1 - Physical Exam Head: Positive for: Atraumatic, Normocephalic Extroacular Muscles: Positive for: EOMI Conjunctiva: Positive for: Normal Mouth: Positive for: Moist Mucous Membranes Neck: Positive for: Normal Range of Motion Respiratory/Chest: Positive for: Clear to Auscultation. Negative for: Good Air Exchange, Respiratory Distress, Accessory Muscle Use Cardiovascular: Positive for: Regular Rate and Rhythm, Normal S1, S2 Abdomen: Positive for: Normal Bowel Sounds. Negative for: Tenderness, Distention Upper Extremity: Positive for: Normal Inspection. Negative for: Edema Lower Extremity: Negative for: Normal Inspection, Edema Neurological: Positive for: GCS=15, Speech Normal Skin: Positive for: Warm, Normal Color Psychiatric: Positive for: Alert, Oriented x 3 - Medications Active Medications: Active Medications Generic Name Dose Route Start Last Admin Trade Name Freq PRN Reason Stop Dose Admin Acetaminophen 650 mg 03/02/17 18:53 03/03/17 02:19 Tylenol 325mg Tab PO 650 mg Q6 PRN Administration Pain, moderate (4-7) Alprazolam 0.25 mg 03/02/17 21:35 03/02/17 23:47 Xanax PO 03/09/17 20:09 0.25 mg HS PRN Administration Anxiety Aspirin 81 mg 03/03/17 10:00 03/03/17 10:03 Ecotrin PO 81 mg DAILY JO Administration Docusate Sodium 100 mg 03/03/17 10:00 03/03/17 10:03 Colace PO 100 mg BID JO Administration Docusate Sodium 200 mg 03/02/17 20:08 Colace PO DAILY PRN Constipation Fluticasone Propionate 2 spr 03/02/17 20:08 Flonase KENNEDY DAILY PRN Allergy symptoms Gabapentin 300 mg 03/03/17 22:00 Neurontin PO HS JO Losartan Potassium 25 mg 03/03/17 10:00 03/03/17 10:03 Cozaar PO 25 mg DAILY JO Administration Metoprolol Succinate 25 mg 03/03/17 10:00 03/03/17 10:06 Toprol Xl PO 25 mg DAILY JO Administration Pantoprazole Sodium 40 mg 03/03/17 10:00 03/03/17 10:03 Protonix Ec Tab PO 40 mg DAILY JO Administration Rosuvastatin Calcium 10 mg 03/03/17 22:00 Crestor PO HS JO Fluticasone/Salmeterol 1 puff 03/03/17 20:00 Advair Diskus 250/50 IH RQ12 JO Ticagrelor 90 mg 03/03/17 10:00 03/03/17 10:03 Brilinta PO 90 mg BID JO Administration Tramadol HCl 50 mg 03/03/17 07:53 Ultram PO Q6H PRN Pain, severe (8-10) - Patient Studies Lab Studies: Lab Studies 03/03/17 03/03/17 03/03/17 Range/Units 06:50 06:50 06:50 WBC 9.0 (4.8-10.8) K/uL RBC 4.13 (3.80-5.20) Mil/uL Hgb 13.3 D (11.0-16.0) g/dL Hct 38.0 (34.0-47.0) % MCV 91.8 (81.0-99.0) fL MCH 32.2 H (27.0-31.0) pg MCHC 35.0 (33.0-37.0) g/dL RDW 13.3 (11.5-14.5) % Plt Count 217 (130-400) K/uL MPV 9.2 (7.2-11.7) fL Neut % (Auto) 80.7 H (50.0-75.0) % Lymph % (Auto) 14.3 L (20.0-40.0) % Hodgeman % (Auto) 4.7 (0.0-10.0) % Eos % (Auto) 0.1 (0.0-4.0) % Baso % (Auto) 0.2 (0.0-2.0) % Neut # 7.3 H (1.8-7.0) K/uL Lymph # 1.3 (1.0-4.3) K/uL Hodgeman # 0.4 (0.0-0.8) K/uL Eos # 0.0 (0.0-0.7) K/uL Baso # 0.0 (0.0-0.2) K/uL PT (9.7-12.2) SECONDS INR APTT (21-34) SECONDS Sodium 135 (132-148) mmol/L Potassium 3.8 (3.6-5.2) mmol/L Chloride 102 (98-107) mmol/L Carbon Dioxide 22 (22-30) mmol/L Anion Gap 16 (10-20) BUN 12 (7-17) mg/dL Creatinine 0.7 (0.7-1.2) MG/DL Est GFR ( Amer) > 60 Est GFR (Non-Af Amer) > 60 POC Glucose (mg/dL) (65-110) mg/dL Random Glucose 127 H (65-105) mg/dL Hemoglobin A1c (4.2-6.5) % Calcium 8.4 L (8.6-10.4) mg/dl Phosphorus 3.7 (2.5-4.5) mg/dL Magnesium 1.6 (1.6-2.3) mg/dL Total Bilirubin 0.6 (0.2-1.3) mg/dL AST 78 H D (14-36) U/L ALT 30 (9-52) U/L Alkaline Phosphatase 50 (38-126) U/L Total Creatine Kinase 614 H (30-135) U/L CK-MB (Mass) 44.8 H (0.0-3.38) ng/mL Troponin I (0.00-0.120) ng/mL Troponin I, Quant 15.2000 H* (0.00-0.120) ng/mL Total Protein 5.8 L (6.3-8.3) g/dL Albumin 3.4 L D (3.5-5.0) g/dL Globulin 2.4 (2.2-3.9) gm/dL Albumin/Globulin Ratio 1.4 (1.0-2.1) Triglycerides (0-149) mg/dL Cholesterol (0-199) mg/dL LDL Cholesterol Direct (0-129) mg/dL HDL Cholesterol (30-70) mg/dL Free T4 1.60 (0.78-2.19) ng/dL TSH 3rd Generation (0.46-4.68) mIU/L Blood Type Antibody Screen 03/03/17 03/03/17 03/02/17 Range/Units 06:50 06:50 23:27 WBC (4.8-10.8) K/uL RBC (3.80-5.20) Mil/uL Hgb (11.0-16.0) g/dL Hct (34.0-47.0) % MCV (81.0-99.0) fL MCH (27.0-31.0) pg MCHC (33.0-37.0) g/dL RDW (11.5-14.5) % Plt Count (130-400) K/uL MPV (7.2-11.7) fL Neut % (Auto) (50.0-75.0) % Lymph % (Auto) (20.0-40.0) % Hodgeman % (Auto) (0.0-10.0) % Eos % (Auto) (0.0-4.0) % Baso % (Auto) (0.0-2.0) % Neut # (1.8-7.0) K/uL Lymph # (1.0-4.3) K/uL Hodgeman # (0.0-0.8) K/uL Eos # (0.0-0.7) K/uL Baso # (0.0-0.2) K/uL PT (9.7-12.2) SECONDS INR APTT (21-34) SECONDS Sodium (132-148) mmol/L Potassium (3.6-5.2) mmol/L Chloride (98-107) mmol/L Carbon Dioxide (22-30) mmol/L Anion Gap (10-20) BUN (7-17) mg/dL Creatinine (0.7-1.2) MG/DL Est GFR ( Amer) Est GFR (Non-Af Amer) POC Glucose (mg/dL) (65-110) mg/dL Random Glucose (65-105) mg/dL Hemoglobin A1c 5.7 (4.2-6.5) % Calcium (8.6-10.4) mg/dl Phosphorus (2.5-4.5) mg/dL Magnesium (1.6-2.3) mg/dL Total Bilirubin (0.2-1.3) mg/dL AST (14-36) U/L ALT (9-52) U/L Alkaline Phosphatase (38-126) U/L Total Creatine Kinase 391 H (30-135) U/L CK-MB (Mass) 32.0 H (0.0-3.38) ng/mL Troponin I 15.7000 H* (0.00-0.120) ng/mL Troponin I, Quant 6.7200 H* (0.00-0.120) ng/mL Total Protein (6.3-8.3) g/dL Albumin (3.5-5.0) g/dL Globulin (2.2-3.9) gm/dL Albumin/Globulin Ratio (1.0-2.1) Triglycerides 130 (0-149) mg/dL Cholesterol 263 H (0-199) mg/dL LDL Cholesterol Direct 222 H (0-129) mg/dL HDL Cholesterol 41 (30-70) mg/dL Free T4 (0.78-2.19) ng/dL TSH 3rd Generation 0.78 (0.46-4.68) mIU/L Blood Type Antibody Screen 03/02/17 03/02/17 03/02/17 Range/Units 17:34 17:34 17:34 WBC (4.8-10.8) K/uL RBC (3.80-5.20) Mil/uL Hgb (11.0-16.0) g/dL Hct (34.0-47.0) % MCV (81.0-99.0) fL MCH (27.0-31.0) pg MCHC (33.0-37.0) g/dL RDW (11.5-14.5) % Plt Count (130-400) K/uL MPV (7.2-11.7) fL Neut % (Auto) (50.0-75.0) % Lymph % (Auto) (20.0-40.0) % Hodgeman % (Auto) (0.0-10.0) % Eos % (Auto) (0.0-4.0) % Baso % (Auto) (0.0-2.0) % Neut # (1.8-7.0) K/uL Lymph # (1.0-4.3) K/uL Hodgeman # (0.0-0.8) K/uL Eos # (0.0-0.7) K/uL Baso # (0.0-0.2) K/uL PT (9.7-12.2) SECONDS INR APTT (21-34) SECONDS Sodium 137 (132-148) mmol/L Potassium 3.0 L (3.6-5.2) mmol/L Chloride 97 L (98-107) mmol/L Carbon Dioxide 23 (22-30) mmol/L Anion Gap 21 H (10-20) BUN 12 (7-17) mg/dL Creatinine 0.9 (0.7-1.2) MG/DL Est GFR ( Amer) > 60 Est GFR (Non-Af Amer) > 60 POC Glucose (mg/dL) (65-110) mg/dL Random Glucose 122 H (65-105) mg/dL Hemoglobin A1c (4.2-6.5) % Calcium 9.4 (8.6-10.4) mg/dl Phosphorus (2.5-4.5) mg/dL Magnesium (1.6-2.3) mg/dL Total Bilirubin 0.7 (0.2-1.3) mg/dL AST 22 (14-36) U/L ALT 23 (9-52) U/L Alkaline Phosphatase 80 (38-126) U/L Total Creatine Kinase (30-135) U/L CK-MB (Mass) (0.0-3.38) ng/mL Troponin I 0.0270 (0.00-0.120) ng/mL Troponin I, Quant (0.00-0.120) ng/mL Total Protein 7.3 (6.3-8.3) g/dL Albumin 4.3 (3.5-5.0) g/dL Globulin 3.0 (2.2-3.9) gm/dL Albumin/Globulin Ratio 1.4 (1.0-2.1) Triglycerides (0-149) mg/dL Cholesterol (0-199) mg/dL LDL Cholesterol Direct (0-129) mg/dL HDL Cholesterol (30-70) mg/dL Free T4 (0.78-2.19) ng/dL TSH 3rd Generation (0.46-4.68) mIU/L Blood Type O NEGATIVE Antibody Screen Negative 03/02/17 03/02/17 03/02/17 Range/Units 17:34 17:34 17:23 WBC 14.0 H (4.8-10.8) K/uL RBC 4.90 (3.80-5.20) Mil/uL Hgb 15.4 (11.0-16.0) g/dL Hct 44.5 (34.0-47.0) % MCV 90.8 (81.0-99.0) fL MCH 31.4 H (27.0-31.0) pg MCHC 34.5 (33.0-37.0) g/dL RDW 13.0 (11.5-14.5) % Plt Count 273 (130-400) K/uL MPV 8.7 (7.2-11.7) fL Neut % (Auto) 40.6 L (50.0-75.0) % Lymph % (Auto) 44.5 H (20.0-40.0) % Hodgeman % (Auto) 9.7 (0.0-10.0) % Eos % (Auto) 4.7 H (0.0-4.0) % Baso % (Auto) 0.5 (0.0-2.0) % Neut # 5.7 (1.8-7.0) K/uL Lymph # 6.2 H (1.0-4.3) K/uL Hodgeman # 1.4 H (0.0-0.8) K/uL Eos # 0.7 (0.0-0.7) K/uL Baso # 0.1 (0.0-0.2) K/uL PT 11.0 (9.7-12.2) SECONDS INR 1.0 APTT 27 (21-34) SECONDS Sodium (132-148) mmol/L Potassium (3.6-5.2) mmol/L Chloride (98-107) mmol/L Carbon Dioxide (22-30) mmol/L Anion Gap (10-20) BUN (7-17) mg/dL Creatinine (0.7-1.2) MG/DL Est GFR ( Amer) Est GFR (Non-Af Amer) POC Glucose (mg/dL) 129 H (65-110) mg/dL Random Glucose (65-105) mg/dL Hemoglobin A1c (4.2-6.5) % Calcium (8.6-10.4) mg/dl Phosphorus (2.5-4.5) mg/dL Magnesium (1.6-2.3) mg/dL Total Bilirubin (0.2-1.3) mg/dL AST (14-36) U/L ALT (9-52) U/L Alkaline Phosphatase (38-126) U/L Total Creatine Kinase (30-135) U/L CK-MB (Mass) (0.0-3.38) ng/mL Troponin I (0.00-0.120) ng/mL Troponin I, Quant (0.00-0.120) ng/mL Total Protein (6.3-8.3) g/dL Albumin (3.5-5.0) g/dL Globulin (2.2-3.9) gm/dL Albumin/Globulin Ratio (1.0-2.1) Triglycerides (0-149) mg/dL Cholesterol (0-199) mg/dL LDL Cholesterol Direct (0-129) mg/dL HDL Cholesterol (30-70) mg/dL Free T4 (0.78-2.19) ng/dL TSH 3rd Generation (0.46-4.68) mIU/L Blood Type Antibody Screen Laboratory Results - last 24 hr 03/02/17 03/02/17 03/02/17 17:23 17:34 17:34 WBC 14.0 H RBC 4.90 Hgb 15.4 Hct 44.5 MCV 90.8 MCH 31.4 H MCHC 34.5 RDW 13.0 Plt Count 273 MPV 8.7 Neut % (Auto) 40.6 L Lymph % (Auto) 44.5 H Hodgeman % (Auto) 9.7 Eos % (Auto) 4.7 H Baso % (Auto) 0.5 Neut # 5.7 Lymph # 6.2 H Hodgeman # 1.4 H Eos # 0.7 Baso # 0.1 PT 11.0 INR 1.0 APTT 27 Sodium Potassium Chloride Carbon Dioxide Anion Gap BUN Creatinine Est GFR ( Amer) Est GFR (Non-Af Amer) POC Glucose (mg/dL) 129 H Random Glucose Hemoglobin A1c Calcium Phosphorus Magnesium Total Bilirubin AST ALT Alkaline Phosphatase Total Creatine Kinase CK-MB (Mass) Troponin I Troponin I, Quant Total Protein Albumin Globulin Albumin/Globulin Ratio Triglycerides Cholesterol LDL Cholesterol Direct HDL Cholesterol Free T4 TSH 3rd Generation Blood Type Antibody Screen 03/02/17 03/02/17 03/02/17 17:34 17:34 17:34 WBC RBC Hgb Hct MCV MCH MCHC RDW Plt Count MPV Neut % (Auto) Lymph % (Auto) Hodgeman % (Auto) Eos % (Auto) Baso % (Auto) Neut # Lymph # Hodgeman # Eos # Baso # PT INR APTT Sodium 137 Potassium 3.0 L Chloride 97 L Carbon Dioxide 23 Anion Gap 21 H BUN 12 Creatinine 0.9 Est GFR ( Amer) > 60 Est GFR (Non-Af Amer) > 60 POC Glucose (mg/dL) Random Glucose 122 H Hemoglobin A1c Calcium 9.4 Phosphorus Magnesium Total Bilirubin 0.7 AST 22 ALT 23 Alkaline Phosphatase 80 Total Creatine Kinase CK-MB (Mass) Troponin I 0.0270 Troponin I, Quant Total Protein 7.3 Albumin 4.3 Globulin 3.0 Albumin/Globulin Ratio 1.4 Triglycerides Cholesterol LDL Cholesterol Direct HDL Cholesterol Free T4 TSH 3rd Generation Blood Type O NEGATIVE Antibody Screen Negative 03/02/17 03/03/17 03/03/17 23:27 06:50 06:50 WBC RBC Hgb Hct MCV MCH MCHC RDW Plt Count MPV Neut % (Auto) Lymph % (Auto) Hodgeman % (Auto) Eos % (Auto) Baso % (Auto) Neut # Lymph # Hodgeman # Eos # Baso # PT INR APTT Sodium Potassium Chloride Carbon Dioxide Anion Gap BUN Creatinine Est GFR ( Amer) Est GFR (Non-Af Amer) POC Glucose (mg/dL) Random Glucose Hemoglobin A1c 5.7 Calcium Phosphorus Magnesium Total Bilirubin AST ALT Alkaline Phosphatase Total Creatine Kinase 391 H CK-MB (Mass) 32.0 H Troponin I 15.7000 H* Troponin I, Quant 6.7200 H* Total Protein Albumin Globulin Albumin/Globulin Ratio Triglycerides 130 Cholesterol 263 H LDL Cholesterol Direct 222 H HDL Cholesterol 41 Free T4 TSH 3rd Generation 0.78 Blood Type Antibody Screen 03/03/17 03/03/17 03/03/17 06:50 06:50 06:50 WBC 9.0 RBC 4.13 Hgb 13.3 D Hct 38.0 MCV 91.8 MCH 32.2 H MCHC 35.0 RDW 13.3 Plt Count 217 MPV 9.2 Neut % (Auto) 80.7 H Lymph % (Auto) 14.3 L Hodgeman % (Auto) 4.7 Eos % (Auto) 0.1 Baso % (Auto) 0.2 Neut # 7.3 H Lymph # 1.3 Hodgeman # 0.4 Eos # 0.0 Baso # 0.0 PT INR APTT Sodium 135 Potassium 3.8 Chloride 102 Carbon Dioxide 22 Anion Gap 16 BUN 12 Creatinine 0.7 Est GFR ( Amer) > 60 Est GFR (Non-Af Amer) > 60 POC Glucose (mg/dL) Random Glucose 127 H Hemoglobin A1c Calcium 8.4 L Phosphorus 3.7 Magnesium 1.6 Total Bilirubin 0.6 AST 78 H D ALT 30 Alkaline Phosphatase 50 Total Creatine Kinase 614 H CK-MB (Mass) 44.8 H Troponin I Troponin I, Quant 15.2000 H* Total Protein 5.8 L Albumin 3.4 L D Globulin 2.4 Albumin/Globulin Ratio 1.4 Triglycerides Cholesterol LDL Cholesterol Direct HDL Cholesterol Free T4 1.60 TSH 3rd Generation Blood Type Antibody Screen EKG/Cardiology Studies: Cardiology / EKG Studies 03/02/17 17:31 ELECTROCARDIOGRAM Stat Comment: Mode Of Transportation: BED Reason For Exam: chest pain Fingerstick Blood Sugar Results: 129 Review of Systems - Constitutional Constitutional: absent: Fever, Chills, Sweats, Weakness - EENT Eyes: absent: Change in Vision Ears: absent: Dizziness - Cardiovascular Cardiovascular: absent: Chest Pain, Diaphoresis, Dyspnea, Lightheadedness, Palpitations - Respiratory Respiratory: absent: Dyspnea, Wheezing - Gastrointestinal Gastrointestinal: absent: Abdominal Pain, Constipation, Diarrhea, Nausea, Vomiting - Musculoskeletal Musculoskeletal: absent: Numbness, Tingling - Neurological Neurological: absent: Dizziness, Numbness, Headaches, Syncope, Tingling, Weakness - Endocrine Endocrine: absent: Fatigue, Palpitations Critical Care Progress Note - Nutrition Nutrition: Nutrition Category Date Time Status Heart Healthy Diet [DIET] Diets 03/02/17 Dinner Active Assessment/Plan - Assessment and Plan (Free Text) Assessment: Patient is a 72 year old female with past medical history of HTN who presented with chest pain and was found to have 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 Diaz on board--> Help appreciated Medications: * Aspirin 81mg PO daily * Crestor 10mg PO HS * Brillinta 90mg PO BID * Toprol XL 25mg PO daily * Cozaar 25mg PO daily Pulm: Hx of asthma Medications: Flonase 2 puff Q12H , advair 1 Puff RQ12H GI: Constipation Medication: Colace 100mg PO BID and 200mg PO daily PRN MSK: Back pain, nerve impingement Medication: Neurontin 300mg PO HS Psych: Medications: Ativan 0.25mg PO HS PRN Prophylaxis: GI: Protonix 40mg PO daily DVT: SCDs Tramadol 50mg PO HS for pain control
--- NOTE | 2017-03-03 19:52 | CP.PCM.PN ---
Subjective - Date & Time of Evaluation Date of Evaluation: 03/03/17 Time of Evaluation: 14:00 - Subjective Subjective: clinically same Objective - Vital Signs/Intake and Output Vital Signs (last 24 hours): Temp Pulse Resp BP Pulse Ox 98.8 F 80 20 132/77 98 03/03/17 16:00 03/03/17 19:00 03/03/17 19:00 03/03/17 19:00 03/03/17 19:00 Intake and Output: 03/03/17 03/04/17 18:59 06:59 Intake Total 1200 50 Output Total 475 400 Balance 725 -350 - Medications Medications: Current Medications Acetaminophen (Tylenol 325mg Tab) 650 mg PO Q6 PRN PRN Reason: Pain, moderate (4-7) Last Admin: 03/03/17 02:19 Dose: 650 mg Alprazolam (Xanax) 0.25 mg PO HS PRN PRN Reason: Anxiety Stop: 03/09/17 20:09 Last Admin: 03/02/17 23:47 Dose: 0.25 mg Aspirin (Ecotrin) 81 mg PO DAILY [facility] Last Admin: 03/03/17 10:03 Dose: 81 mg Docusate Sodium (Colace) 100 mg PO BID [facility] Last Admin: 03/03/17 17:03 Dose: 100 mg Docusate Sodium (Colace) 200 mg PO DAILY PRN PRN Reason: Constipation Fluticasone Propionate (Flonase) 2 spr KENNEDY DAILY PRN PRN Reason: Allergy symptoms Gabapentin (Neurontin) 300 mg PO HS [facility] Losartan Potassium (Cozaar) 25 mg PO DAILY [facility] Last Admin: 03/03/17 10:03 Dose: 25 mg Metoprolol Succinate (Toprol Xl) 25 mg PO DAILY [facility] Last Admin: 03/03/17 10:06 Dose: 25 mg Pantoprazole Sodium (Protonix Ec Tab) 40 mg PO DAILY [facility] Last Admin: 03/03/17 10:03 Dose: 40 mg Rosuvastatin Calcium (Crestor) 10 mg PO HS [facility] Fluticasone/Salmeterol (Advair Diskus 250/50) 1 puff IH RQ12 [facility] Ticagrelor (Brilinta) 90 mg PO BID [facility] Last Admin: 03/03/17 17:03 Dose: 90 mg Tramadol HCl (Ultram) 50 mg PO Q6H PRN PRN Reason: Pain, severe (8-10) Last Admin: 03/03/17 19:18 Dose: 50 mg - Labs Labs: 03/03/17 06:50 03/03/17 06:50 PT 11.0 SECONDS (9.7-12.2) 03/02/17 17:34 INR 1.0 03/02/17 17:34 APTT 27 SECONDS (21-34) 03/02/17 17:34 - Constitutional Appears: Well - Head Exam Head Exam: ATRAUMATIC, NORMAL INSPECTION, NORMOCEPHALIC - Eye Exam Eye Exam: EOMI, Normal appearance, PERRL Pupil Exam: NORMAL ACCOMODATION, PERRL - ENT Exam ENT Exam: Mucous Membranes Moist, Normal Exam - Neck Exam Neck Exam: Full ROM, Normal Inspection. absent: Lymphadenopathy - Respiratory Exam Respiratory Exam: Decreased Breath Sounds - Cardiovascular Exam Cardiovascular Exam: REGULAR RHYTHM, +S1, +S2 - GI/Abdominal Exam GI & Abdominal Exam: Soft, Diminished Bowel Sounds - Rectal Exam Rectal Exam: Deferred - Extremities Exam Extremities Exam: Full ROM, Normal Capillary Refill, Normal Inspection. absent : Joint Swelling, Pedal Edema - Back Exam Back Exam: NORMAL INSPECTION - Neurological Exam Neurological Exam: Alert, Awake, CN II-XII Intact, Normal Gait, Oriented x3 - Psychiatric Exam Psychiatric exam: Normal Affect, Normal Mood - Skin Skin Exam: Dry, Intact, Normal Color, Warm Assessment and Plan (1) Abdominal pain Status: Acute (2) Acute diverticulitis Status: Acute (3) Anxiety and depression Status: Acute (4) Asthma Status: Acute (5) Back pain Status: Acute (6) CAD (coronary artery disease) Status: Acute (7) Chest pain at rest Status: Acute (8) Chronic back pain Status: Acute (9) Constipation Status: Acute (10) Diverticulitis Status: Acute (11) Dizziness Status: Acute (12) Hypercholesterolemia Status: Acute (13) Hypokalemia Status: Acute (14) Leukocytosis (leucocytosis) Status: Acute (15) Pre-syncope Status: Acute (16) STEMI (ST elevation myocardial infarction) Status: Acute (17) Hypertension Status: Chronic - Assessment and Plan (Free Text) Plan: Patient examined. Continue aspirin, antihypertensive medications, Brilinta, and supportive medications.
[2017-03-03] MEDS ORDERED: Fluticasone-Salmeterol 250-50mcg Diskus IH SCH (20:00)
[2017-03-04 06:36] LABS: BASO # 0.1 K/uL (0.0-0.2); BASO % 0.6 % (0.0-2.0); EOS # 0.6 K/uL (0.0-0.7); HEMATOCRIT 33.4 % (34.0-47.0); LYMPH # 4.1 K/uL (1.0-4.3); LYMPH % 29.1 % (20.0-40.0); MEAN CELL VOLUME 92.2 fL (81.0-99.0); MEAN CORPUSCULAR HEMOGLOBIN 32.3 pg (27.0-31.0); MONO # 1.1 K/uL (0.0-0.8); MONO % 7.8 % (0.0-10.0); RED CELL DISTRIBUTION WIDTH 13.4 % (11.5-14.5); WHITE BLOOD COUNT 13.9 K/uL (4.8-10.8)
[2017-03-04 06:38] LABS: RBC URINE 1 /hpf (0-3); URINE BACTERIA OCC (<OCC); URINE BILIRUBIN NEGATIVE (NEGATIVE); URINE BLOOD TRACE (NEGATIVE); URINE COLOR Yellow (YELLOW); URINE GLUCOSE (UA) NORMAL (Normal); URINE KETONE NEGATIVE (NEGATIVE); URINE LEUKOCYTE ESTERASE 2+ Leu/uL (Negative); URINE PROTEIN NEGATIVE (NEGATIVE); URINE UROBILINOGEN NORMAL mg/dL (0.2-1.0); WBC URINE 17 /hpf (0-5)
[2017-03-04 06:53] LABS: CHLORIDE 102 mmol/L (98-107); SODIUM 138 mmol/L (132-148)
[2017-03-04 06:55] LABS: ALB/GLOB RATIO 1.2 (1.0-2.1); AST/SGOT 68 U/L (14-36); BILIRUBIN,TOTAL 0.7 mg/dL (0.2-1.3); CARBON DIOXIDE 25 mmol/L (22-30); GFR AFRICAN-AMERICAN > 60; TOTAL PROTEIN 5.8 g/dL (6.3-8.3)
[2017-03-04 06:56] LABS: ALKALINE PHOSPHATASE 47 U/L (38-126); ALT/SGPT 27 U/L (9-52); BLOOD UREA NITROGEN 15 mg/dL (7-17); CALCIUM 8.4 mg/dl (8.6-10.4); GLUCOSE,RANDOM 90 mg/dL (65-105); MAGNESIUM 1.8 mg/dL (1.6-2.3); PHOSPHOROUS 2.5 mg/dL (2.5-4.5)
[2017-03-04 06:58] LABS: POTASSIUM 3.5 mmol/L (3.6-5.2)
[2017-03-04] MEDS: Pantoprazole 40 mg EC Tab PO SCH (09:11)
[2017-03-04] MEDS: Metoprolol Succinate 25 mg XL Tab PO SCH (09:11)
--- NOTE | 2017-03-04 10:13 | CP.PCM.PN ---
<Michael William - Last Filed: 03/04/17 16:28> Subjective - Date & Time of Evaluation Date of Evaluation: 03/04/17 Time of Evaluation: 10:13 - Subjective Subjective: PGY-[address] Roa's service: Pt seen and examined at bedside. Nursing reports no acute events overnight. Patient denies chest pain, palpitations, SOB overnight. Only c/o occasional gas pain in RLQ, that has improved. Patient marked for discharge today per DR. Roa. She will follow up in his office, and with rn utilization management um Dr Diaz. Objective - Vital Signs/Intake and Output Vital Signs (last 24 hours): Temp Pulse Resp BP Pulse Ox 97.5 F L 71 19 131/54 L 96 03/04/17 08:00 03/04/17 10:00 03/04/17 10:00 03/04/17 10:00 03/04/17 10:00 Intake and Output: 03/04/17 03/04/17 06:59 18:59 Intake Total 530 Output Total 1400 Balance -870 - Medications Medications: Current Medications Acetaminophen (Tylenol 325mg Tab) 650 mg PO Q6 PRN PRN Reason: Pain, moderate (4-7) Last Admin: 03/03/17 02:19 Dose: 650 mg Alprazolam (Xanax) 0.25 mg PO HS PRN PRN Reason: Anxiety Stop: 03/09/17 20:09 Last Admin: 03/03/17 21:26 Dose: 0.25 mg Aspirin (Ecotrin) 81 mg PO DAILY [facility] Last Admin: 03/04/17 09:11 Dose: 81 mg Docusate Sodium (Colace) 100 mg PO BID [facility] Last Admin: 03/04/17 09:12 Dose: 100 mg Docusate Sodium (Colace) 200 mg PO DAILY PRN PRN Reason: Constipation Fluticasone Propionate (Flonase) 2 spr KENNEDY DAILY PRN PRN Reason: Allergy symptoms Gabapentin (Neurontin) 300 mg PO HS [facility] Last Admin: 03/03/17 21:26 Dose: 300 mg Losartan Potassium (Cozaar) 25 mg PO DAILY [facility] Last Admin: 03/04/17 09:11 Dose: 25 mg Metoprolol Succinate (Toprol Xl) 25 mg PO DAILY [facility] Last Admin: 03/04/17 09:11 Dose: 25 mg Pantoprazole Sodium (Protonix Ec Tab) 40 mg PO DAILY [facility] Last Admin: 03/04/17 09:11 Dose: 40 mg Rosuvastatin Calcium (Crestor) 10 mg PO HS [facility] Last Admin: 03/03/17 21:26 Dose: 10 mg Fluticasone/Salmeterol (Advair Diskus 250/50) 1 puff IH RQ12 [facility] Last Admin: 03/04/17 08:51 Dose: 1 puff Ticagrelor (Brilinta) 90 mg PO BID [facility] Last Admin: 03/04/17 09:11 Dose: 90 mg Tramadol HCl (Ultram) 50 mg PO Q6H PRN PRN Reason: Pain, severe (8-10) Last Admin: 03/03/17 19:18 Dose: 50 mg - Labs Labs: 03/04/17 06:26 03/04/17 06:26 PT 11.0 SECONDS (9.7-12.2) 03/02/17 17:34 INR 1.0 03/02/17 17:34 APTT 27 SECONDS (21-34) 03/02/17 17:34 - Constitutional Appears: Non-toxic, No Acute Distress - Head Exam Head Exam: ATRAUMATIC, NORMOCEPHALIC - Eye Exam Eye Exam: EOMI, Normal appearance. absent: Scleral icterus - ENT Exam ENT Exam: Mucous Membranes Moist - Respiratory Exam Respiratory Exam: Clear to Ausculation Bilateral, NORMAL BREATHING PATTERN. absent: Rales, Rhonchi, Wheezes - Cardiovascular Exam Cardiovascular Exam: REGULAR RHYTHM, +S1, +S2 - GI/Abdominal Exam GI & Abdominal Exam: Soft, Normal Bowel Sounds. absent: Distended, Guarding, Tenderness Additional comments: rovsing/rogers/mcburney negative - Extremities Exam Extremities Exam: Normal Inspection. absent: Pedal Edema, Tenderness - Neurological Exam Neurological Exam: Alert, Awake, Oriented x3 - Skin Skin Exam: Dry, Normal Color, Warm Assessment and Plan - Assessment and Plan (Free Text) Plan: Disposition: Pt for discharge today. Will follow up with Dr. Diaz, cardio, and Dr. Luis Roa within one week. STEMI; resolving -Cardiac cath performed; Dr. Diaz; placed once stent in the RCA 99% occlusion -patients chest pain resolved -original EKG showed ST elevations in II, III, AVF with reciprocal changes -patient currently on aspirin, arb, low dose beta keyla, and statin for ACS protocol; patient will need to continue with brillanta for one year -patient tolerated procedure well; normotensive today in no acute distress -Lipid panel markedly elevated; lifestyle modification endorsed to patient as well as statin use -IGT; Hemoglobin A1c 5.7; patient will need to f/u in one year; lifestyle modifications -patient has hx of HTN; will need strict control -patient will f/u with her outpatient rn utilization management um within 1 week of discharge -f/u echo as outpatient; during cath EF estimated at 50% -patient can be transferred out to tele Prophylaxis Pepcid SCD Heart healthy diet All management as per Dr. Tawanda WILLIAM PGY-2 <Anthony Roa - Last Filed: 04/07/17 18:04> Objective - Vital Signs/Intake and Output Vital Signs (last 24 hours): Temp Pulse Resp BP Pulse Ox 97.8 F 82 20 140/76 100 03/04/17 16:00 03/04/17 17:00 03/04/17 17:00 03/04/17 17:00 03/04/17 17:00 - Labs Labs: 03/04/17 06:26 03/04/17 06:26 PT 11.0 SECONDS (9.7-12.2) 03/02/17 17:34 INR 1.0 03/02/17 17:34 APTT 27 SECONDS (21-34) 03/02/17 17:34 Attending/Attestation - Attestation I have personally seen and examined this patient.: Yes I have fully participated in the care of the patient.: Yes I have reviewed all pertinent clinical information, including history, physical exam and plan: Yes Notes (Text): Patient examined at bedside. Patient currently asymptomatic. PCI done. Continue anti-ischemic and antihypertensive medications.
[2017-03-04 11:01] VITALS: RESP 20
--- NOTE | 2017-03-04 15:49 | CP.PCM.PN ---
Subjective - Date & Time of Evaluation Date of Evaluation: 03/04/17 Time of Evaluation: 15:00 - Subjective Subjective: patient feels well. she denies chest pain or dyspnea. Objective - Vital Signs/Intake and Output Vital Signs (last 24 hours): Temp Pulse Resp BP Pulse Ox 98.1 F 76 20 129/55 L 97 03/04/17 12:00 03/04/17 15:00 03/04/17 15:00 03/04/17 15:00 03/04/17 15:00 Intake and Output: 03/04/17 03/04/17 06:59 18:59 Intake Total 530 250 Output Total 1400 530 Balance -870 -280 - Medications Medications: Current Medications Acetaminophen (Tylenol 325mg Tab) 650 mg PO Q6 PRN PRN Reason: Pain, moderate (4-7) Last Admin: 03/04/17 12:49 Dose: 650 mg Alprazolam (Xanax) 0.25 mg PO HS PRN PRN Reason: Anxiety Stop: 03/09/17 20:09 Last Admin: 03/03/17 21:26 Dose: 0.25 mg Aspirin (Ecotrin) 81 mg PO DAILY [facility] Last Admin: 03/04/17 09:11 Dose: 81 mg Docusate Sodium (Colace) 100 mg PO BID [facility] Last Admin: 03/04/17 09:12 Dose: 100 mg Docusate Sodium (Colace) 200 mg PO DAILY PRN PRN Reason: Constipation Fluticasone Propionate (Flonase) 2 spr KENNEDY DAILY PRN PRN Reason: Allergy symptoms Gabapentin (Neurontin) 300 mg PO HS [facility] Last Admin: 03/03/17 21:26 Dose: 300 mg Losartan Potassium (Cozaar) 25 mg PO DAILY [facility] Last Admin: 03/04/17 09:11 Dose: 25 mg Metoprolol Succinate (Toprol Xl) 25 mg PO DAILY [facility] Last Admin: 03/04/17 09:11 Dose: 25 mg Pantoprazole Sodium (Protonix Ec Tab) 40 mg PO DAILY [facility] Last Admin: 03/04/17 09:11 Dose: 40 mg Rosuvastatin Calcium (Crestor) 10 mg PO HS [facility] Last Admin: 03/03/17 21:26 Dose: 10 mg Fluticasone/Salmeterol (Advair Diskus 250/50) 1 puff IH RQ12 [facility] Last Admin: 03/04/17 08:51 Dose: 1 puff Ticagrelor (Brilinta) 90 mg PO BID [facility] Last Admin: 03/04/17 09:11 Dose: 90 mg Tramadol HCl (Ultram) 50 mg PO Q6H PRN PRN Reason: Pain, severe (8-10) Last Admin: 03/03/17 19:18 Dose: 50 mg - Labs Labs: 03/04/17 06:26 03/04/17 06:26 PT 11.0 SECONDS (9.7-12.2) 03/02/17 17:34 INR 1.0 03/02/17 17:34 APTT 27 SECONDS (21-34) 03/02/17 17:34 - Constitutional Appears: Non-toxic - Head Exam Head Exam: NORMAL INSPECTION - Eye Exam Eye Exam: Normal appearance - ENT Exam ENT Exam: Normal Exam - Neck Exam Neck Exam: Full ROM - Respiratory Exam Respiratory Exam: NORMAL BREATHING PATTERN - Cardiovascular Exam Cardiovascular Exam: REGULAR RHYTHM - GI/Abdominal Exam GI & Abdominal Exam: Normal Bowel Sounds - Rectal Exam Rectal Exam: Deferred - Extremities Exam Extremities Exam: Full ROM - Neurological Exam Neurological Exam: Alert, Oriented x3 - Psychiatric Exam Psychiatric exam: Normal Mood - Skin Skin Exam: Dry Assessment and Plan (1) STEMI (ST elevation myocardial infarction) Assessment & Plan: s/p PCI RCA. continue ASA Brilinta. discussed the improtance of compliance with antiplatelet therapy. Patient is stable for discharge Status: Acute (2) Hypertension Status: Chronic (3) Hypercholesterolemia Status: Acute
[2017-03-04 16:36] VITALS: TEMP 97.8
[2017-03-04 17:59] VITALS: BP 140/76; PULSE 82; O2SAT 100
--- NOTE | 2017-03-04 18:28 | CARD ---
APPROVED REPORT EXAM: Two-dimensional and M-mode echocardiogram with Doppler and color Doppler. Other Information Quality : GoodRhythm : NSR INDICATION Syncope STEMI RISK FACTORS Hypertension Hyperlipidemia 2D DIMENSIONS IVSd0.8 (0.7-1.1cm)LVDd4.7 (3.9-5.9cm) LVOT Diameter1.9 (1.8-2.4cm)PWd0.8 (0.7-1.1cm) LVDs3.2 (2.5-4.0cm)FS (%) 31.7 % LVEF (%)59.7 (>50%) M-Mode DIMENSIONS Left Atrium (MM)3.06 (2.5-4.0cm)Aortic Root2.70 (2.2-3.7cm) Aortic Cusp Exc.1.39 (1.5-2.0cm) Aortic Valve AoV Peak Fdeklflx645.9cm/sAoV VTI52.1cmAO Peak GR.27mmHg LVOT Peak Zxibwnzc550.0cm/sLVOT VTI30.89cmAO Mean GR.14mmHg BRANDON (VMAX)1.71ek1NIZ (VTI)1.67cm2 Mitral Valve MV E Bwpjrjfi033.7cm/sMV A Fhgijuyv069.9cm/sE/A ratio0.7 TDI E/Lateral E'0.0E/Medial E'0.0 Tricuspid Valve TR Peak Uiofordz946mz/sTR Peak Gr.23hdEqWTZQ58ycOs LEFT VENTRICLE The left ventricle is normal size. There is normal left ventricular wall thickness. The left ventricular function is normal. The left ventricular ejection fraction is within the normal range. There is normal LV segmental wall motion. The left ventricular diastolic function is normal. No left ventricle thrombus noted on this study. There is no ventricular septal defect visualized. There is no left ventricular aneurysm. There is no mass noted in the left ventricle. RIGHT VENTRICLE The right ventricle is normal size. There is normal right ventricular wall thickness. The right ventricular systolic function is normal. ATRIA The left atrium size is normal. The right atrium size is normal. The interatrial septum is intact with no evidence for an atrial septal defect. AORTIC VALVE The aortic valve is normal in structure. No aortic regurgitation is present. There is moderate valvular aortic stenosis. Calculated aortic valve area is 1.6 cm2 with maximum pressure gradient of 27 mmHg and mean pressure gradient of 14 mmHg. MITRAL VALVE The mitral valve is normal in structure. There is no mitral valve stenosis. There is no mitral valve regurgitation noted. TRICUSPID VALVE The tricuspid valve is normal in structure. There is no tricuspid valve regurgitation noted. PULMONIC VALVE The pulmonary valve is normal in structure. GREAT VESSELS The aortic root is normal in size. The ascending aorta is normal in size. PERICARDIAL EFFUSION There is no pericardial effusion. <Conclusion> There is moderate valvular aortic stenosis. Calculated aortic valve area is 1.6 cm2 with maximum pressure gradient of 27 mmHg and mean pressure gradient of 14 mmHg. lv ef is 60%.
--- NOTE | 2017-03-04 18:29 | CARD ---
APPROVED REPORT EKG Measurement Heart [id number] <Conclusion> Normal sinus rhythm Anterior infarct, possibly acute Inferolateral injury pattern ACUTE LA / STEMI Consider right ventricular involvement in acute inferior infarct Abnormal ECG
--- NOTE | 2017-03-06 15:41 | CARD ---
APPROVED REPORT EKG Measurement Heart [id number] [place] [id number] [id number] <Conclusion> Normal sinus rhythm Lateral infarct, age undetermined Prolonged QT Abnormal ECG
--- NOTE | 2017-03-10 16:54 | CATH ---
APPROVED REPORT Procedure(s) performed: Left Heart Catheterization Left Ventriculogram Coronary Angiography and Percutaneous Coronary Intervention HISTORY INDICATION The indication(s) include : STEMI (>0 to less than or equal to 6 hours). CASE TECHNIQUE The patient was brought emergently to the Cardiac Catheterization Laboratory in a fasting state and was prepped and draped in a sterile difficulty. Coronary angiography was performed using coronary diagnostic catheters. The left coronary system was accessed and visualized with a Diagnostic catheter. The right coronary system was accessed and visualized with a Catheter Interventional 6 Fr. JR 4.0 catheter. The left ventricle was accessed and visualized with a Diagnostic catheter. Left ventricular/Aortic Valve gradient assessed on pullback. Left ventriculogram was performed in PERES projection. Hemostasis was obtained with manual pressure following sheath removal without any complications. The patient tolerated the procedure well and there were no complications associated with the procedure. Vessel Analysis The patient's coronary anatomy is right dominant. The left main coronary artery is a medium size vessel with intimal irregularities. The left main bifurcates to the left anterior descending and circumflex. The left anterior descending artery is a small size vessel . There is a 50% stenosis in the mid segment. The first diagonal branch is a small size vessel . There is a 50% stenosis in the proximal segment. The circumflex artery is a medium size vessel with intimal irregularities. The right coronary artery is a medium size vessel . There is a 99% stenosis in the proximal segment. Left Ventricle The left ventricular ejection fraction is estimated to be 50%. There was no gradient across the aortic valve upon pullback. PCI Technique Lesion Anticoagulation was achieved with Heparin. Percutaneous coronary intervention was performed on the proximal right coronary artery. The lesion stenosis prior to intervention was 99% with AMERICA 2 flow. A Catheter Interventional 6 Fr. JR 4.0 Guide Catheter was used to engage the ostium. A Whisper wire .014in x 190cm Interventional Guidewire was used to cross the lesion. BALLOON DILATION A Balloon catheter Trek 2.5 x 12mm was inserted and inflated up to 8.00atm for 7seconds. STENT DEPLOYMENT A drug-eluting stent XIENCE Xpedition 3.5 x 33 MARCOS was inserted and inflated up to 10.00atm for 13seconds. Final angiography reveals 0 % stenosis with AMERICA 3 flow. Conclusion Successful PCI proximal RCA (culprit vessel) with a Xience drug eluting stent. Recommendations Aggressive Medical Therapy ASA 81 mg daily. Brilinta 90 mg BID x 1 year, then Brilitna 60 mg BID
== END 2017-03-04 18:16 | disposition home or self-care (01) | DRG 247 ==
LOC: C.ER 17:23 → C.9E 17:34 → C.9I 19:22
PROVIDERS: ADMIT Internal Medicine Nephrology; ATTEND Internal Medicine Nephrology
PROC: 027034Z Dilation of Coronary Artery, One Artery with Drug-eluting Intraluminal Device, Percutaneous Approach (ICD-10-PCS; principal; 2017-03-02)
PROC: 4A023N7 Measurement of Cardiac Sampling and Pressure, Left Heart, Percutaneous Approach (ICD-10-PCS; 2017-03-02)
PROC: B201YZZ Plain Radiography of Multiple Coronary Arteries using Other Contrast (ICD-10-PCS; 2017-03-02)
PROC: B205YZZ Plain Radiography of Left Heart using Other Contrast (ICD-10-PCS; 2017-03-02)
DX: I21.19 ST elevation (STEMI) myocardial infarction involving other coronary artery of inferior wall (principal); E11.9 Type 2 diabetes mellitus without complications; D64.9 Anemia, unspecified; H33.21 Serous retinal detachment, right eye; I10 Essential (primary) hypertension; E87.6 Hypokalemia; F41.9 Anxiety disorder, unspecified; J45.909 Unspecified asthma, uncomplicated; E78.00 Pure hypercholesterolemia, unspecified; G47.30 Sleep apnea, unspecified; Z95.5 Presence of coronary angioplasty implant and graft

== ENCOUNTER 2017-03-07 15:32 | Observation (INO) | payer MEDICARE, OTHER ==
[2017-03-07 15:33] VITALS: BMI 29.2
[2017-03-07] MEDS ORDERED: POLYETHYLENE GLYCOL 3350 17 GM/Dose PACKET PO STA (16:18)
[2017-03-07 16:48] LABS: BASO % 0.4 % (0.0-2.0); EOS # 0.5 K/uL (0.0-0.7); EOS % 4.3 % (0.0-4.0); HEMATOCRIT 34.2 % (34.0-47.0); LYMPH # 1.7 K/uL (1.0-4.3); LYMPH % 14.8 % (20.0-40.0); MEAN CELL VOLUME 91.2 fL (81.0-99.0); MEAN CORPUSCULAR HEMOGLOBIN 31.6 pg (27.0-31.0); MEAN CORPUSCULAR HGB CONC 34.7 g/dL (33.0-37.0); MEAN PLATELET VOLUME 8.7 fL (7.2-11.7); MONO # 1.4 K/uL (0.0-0.8); RED CELL DISTRIBUTION WIDTH 13.1 % (11.5-14.5); WHITE BLOOD COUNT 11.8 K/uL (4.8-10.8)
[2017-03-07 16:53] LABS: CHLORIDE 100 mmol/L (98-107)
[2017-03-07 16:54] LABS: POTASSIUM 3.4 mmol/L (3.6-5.2); SODIUM 134 mmol/L (132-148)
[2017-03-07 16:56] LABS: ALKALINE PHOSPHATASE 69 U/L (38-126); AST/SGOT 30 U/L (14-36); BILIRUBIN,TOTAL 1.2 mg/dL (0.2-1.3); CARBON DIOXIDE 24 mmol/L (22-30); GFR AFRICAN-AMERICAN > 60
[2017-03-07 16:57] LABS: ALT/SGPT 33 U/L (9-52); BLOOD UREA NITROGEN 16 mg/dL (7-17); CALCIUM 9.3 mg/dl (8.6-10.4); GLUCOSE,RANDOM 100 mg/dL (65-105)
--- NOTE | 2017-03-07 17:09 | C.PDOC ---
History Of Present Illness 72 y/o female presents to ED with complaints of generalized weakness, left arm tightness and chest discomfort. Patient states last bowel movement was 6 days ago and is concerned. Patient was admitted to hospital 6 days ago and had a stent placed, was discharged 2 days after. Patient went to see PMD (Dr. Sarmiento ) for symptoms who advised she come to emergency department for further evaluation. Patient denies fever, chills, numbness, abdominal pain or any other complaints at this time. Time Seen by Provider: 03/07/17 16:03 Chief Complaint (Nursing): Abdominal Pain History Per: Patient History/Exam Limitations: no limitations Onset/Duration Of Symptoms: Days Current Symptoms Are (Timing): Still Present Past Medical History Reviewed: Historical Data, Nursing Documentation, Vital Signs Vital Signs: Last Vital Signs Temp Pulse 70 03/07/17 15:47 Resp 16 03/07/17 15:47 BP 184/77 H 03/07/17 15:47 Pulse Ox 96 03/07/17 17:55 - Medical History PMH: Anemia, Anxiety, Arthritis (NECK AND BACK), Asthma, Depression, Diverticulitis, HTN, Hypercholesterolemia, Pneumonia, Sleep Apnea Denies: Chronic Kidney Disease Surgical History: No Surg Hx - [facility] Procedures DILATION OF 1 COR ART WITH DRUG-ELUT INTRA, PERC APPROACH (03/02/17) MEASURE OF CARDIAC SAMPL & PRESSURE, L HEART, PERC APPROACH (03/02/17) PLAIN RADIOGRAPHY OF LEFT HEART USING OTHER CONTRAST (03/02/17) PLAIN RADIOGRAPHY OF MULT COR ART USING OTH CONTRAST (03/02/17) Family History: States: No Known Family Hx - Social History Hx Alcohol Use: No Hx Substance Use: No - Immunization History Hx Influenza Vaccination: No Hx Pneumococcal Vaccination: No Review Of Systems Except As Marked, All Systems Reviewed And Found Negative. Cardiovascular: Positive for: Chest Pain Neurological: Positive for: Weakness, Other (Diaphoresis) Physical Exam - Physical Exam Appears: Non-toxic, No Acute Distress Skin: Warm, Dry, Diaphoretic, No Rash Head: Atraumatic, Normacephalic Oral Mucosa: Moist Neck: Normal ROM, Supple Chest: Symmetrical Cardiovascular: Rhythm Regular Respiratory: Normal Breath Sounds, No Rales, No Rhonchi, No Wheezing Extremity: No Deformity, No Swelling, Other (Healing puncture site to right femoral canal) Extremity: Bilateral: Normal ROM Neurological/Psych: Oriented x3 ED Course And Treatment - Laboratory Results Result Diagrams: 03/07/17 16:41 03/07/17 16:41 ECG: Interpreted By Me, Viewed By Me ECG Rhythm: Sinus Rhythm Interpretation Of ECG: Left axis deviation, Inferior Infarct, age undetermined. ST&T wave abnormality, consider lateral ischemia Rate From EC (bpm) O2 Sat by Pulse Oximetry: 96 (ra) Medical Decision Making Medical Decision Making: Plan: Poleythylene Glycol, CXR, ECG, IV fluids Assessment: Chest pain, s/p stent placement Progress: Patient admitted to Hospital for chest pain, Weakness to Dr. Spencer Spoke to Dr. srinivasan for consult Tried to reach Dr. Luis Roa unable to reach Disposition - Disposition Disposition: HOSPITALIZED Disposition Time: 17:46 Condition: FAIR Forms: [facility] ([place]) - POA Core Measure Indicators: Chest Pain - Clinical Impression Clinical Impression: Constipation, Dizziness, Chest pain at rest, Near syncope - Scribe Statement The provider has reviewed the documentation as recorded by the Edsoniberum Bello All medical record entries made by the Edsonibe were at my direction and personally dictated by me. I have reviewed the chart and agree that the record accurately reflects my personal performance of the history, physical exam, medical decision making, and the department course for this patient. I have also personally directed, reviewed, and agree with the discharge instructions and disposition. Decision To Admit - Pt Status Changed To: Hospital Disposition Of: Observation - . Bed Request Type: Telemetry Admitting Physician: Edmundo Dorman Patient Diagnosis: Constipation, Dizziness, Chest pain at rest, Near syncope
--- NOTE | 2017-03-07 18:45 | CP.PCM.CON ---
History of Present Illness - History of Present Illness History of Present Illness: Patient seen/examined. Symptoms seem consistent with dehydration, vasovagal. I recommend monitoring ovenight. If no symptoms, can d/c in am. Maintain ASA 81 mg daily, Brilinta 90 mg BID given PCI RCA. Past Patient History - Infectious Disease Hx of Infectious Diseases: None - Tetanus Immunizations Tetanus Immunization: Unknown - Past Medical History & Family History Past Medical History?: Yes - Past Social History Smoking Status: Never Smoked - CARDIAC Hx Hypercholesterolemia: Yes Hx Hypertension: Yes - PULMONARY Hx Asthma: Yes Hx Pneumonia: Yes Hx Sleep Apnea: Yes - NEUROLOGICAL Hx Neurological Disorder: No - HEENT Hx HEENT Problems: Yes Hx Cataracts: Yes (BILATERAL) Other/Comment: DETACHED RETINA-RIGHT - RENAL Hx Chronic Kidney Disease: No - ENDOCRINE/METABOLIC Hx Endocrine Disorders: No - HEMATOLOGICAL/ONCOLOGICAL Hx Anemia: Yes - INTEGUMENTARY Hx Dermatological Problems: No - MUSCULOSKELETAL/RHEUMATOLOGICAL Hx Arthritis: Yes (NECK AND BACK) - GASTROINTESTINAL Hx Diverticulitis: Yes - GENITOURINARY/GYNECOLOGICAL Hx Genitourinary Disorders: No Hx Urinary Tract Infection: Yes Other/Comment: Chronic cystitis - PSYCHIATRIC Hx Anxiety: Yes Hx Depression: Yes Hx Substance Use: No - SURGICAL HISTORY Hx Surgeries: Yes Hx Cataract Extraction: Yes Hx Eye Surgery: Yes (LYUDMILA CATARACT;DETACHED RETINA) Hx Hysterectomy: Yes Other/Comment: COLON RESECTION. RIGHT CARPAL TUNNEL - ANESTHESIA Hx Anesthesia: Yes Hx Anesthesia Reactions: No Hx Malignant Hyperthermia: No Meds Allergies/Adverse Reactions: Allergies Allergy/AdvReac Type Severity Reaction Status Date / Time ciprofloxacin [From Cipro] Allergy RASH Verified 03/02/17 18:04 ciprofloxacin HCl Allergy RASH Verified 03/02/17 18:04 [From Cipro] iodine Allergy RASH Verified 03/02/17 18:04 ondansetron HCl Allergy ANAPHYLAXIS Verified 03/02/17 18:04 [From Zofran (as hydrochloride)] pneumococcal vaccine Allergy RASH Verified 03/02/17 18:04 hydromorphone HCl AdvReac Intermediate ANAPHYLAXIS Verified 03/02/17 18:04 [From Dilaudid] Results - Vital Signs Recent Vital Signs: Last Vital Signs Temp Pulse 70 03/07/17 15:47 Resp 16 03/07/17 15:47 BP 184/77 H 03/07/17 15:47 Pulse Ox 96 03/07/17 17:55 - Labs Result Diagrams: 03/07/17 16:41 03/07/17 16:41 Labs: Laboratory Results - last 24 hr 03/07/17 03/07/17 03/07/17 16:41 16:41 16:41 WBC 11.8 H RBC 3.75 L Hgb 11.9 Hct 34.2 MCV 91.2 MCH 31.6 H MCHC 34.7 RDW 13.1 Plt Count 233 MPV 8.7 Neut % (Auto) 68.5 Lymph % (Auto) 14.8 L [place] % (Auto) 12.0 H Eos % (Auto) 4.3 H Baso % (Auto) 0.4 Neut # 8.1 H Lymph # 1.7 [place] # 1.4 H Eos # 0.5 Baso # 0.0 PT 11.6 INR 1.0 APTT 28 Sodium 134 Potassium 3.4 L Chloride 100 Carbon Dioxide 24 Anion Gap 14 BUN 16 Creatinine 0.9 Est GFR ( Amer) > 60 Est GFR (Non-Af Amer) > 60 Random Glucose 100 Calcium 9.3 Total Bilirubin 1.2 AST 30 ALT 33 Alkaline Phosphatase 69 Troponin I 0.7650 H* NT-Pro-B Natriuret Pep 1140 H Total Protein 8.0 Albumin 3.9 Globulin 4.1 H Albumin/Globulin Ratio 1.0
--- NOTE | 2017-03-07 18:58 | CP.PCM.PN ---
Subjective - Date & Time of Evaluation Date of Evaluation: 03/07/17 Time of Evaluation: 18:30 - Subjective Subjective: H&P dictated #[id number] Objective - Vital Signs/Intake and Output Vital Signs (last 24 hours): Temp Pulse Resp BP Pulse Ox 70 16 184/77 H 96 03/07/17 15:47 03/07/17 15:47 03/07/17 15:47 03/07/17 17:55 - Labs Labs: 03/07/17 16:41 03/07/17 16:41 PT 11.6 SECONDS (9.7-12.2) 03/07/17 16:41 INR 1.0 03/07/17 16:41 APTT 28 SECONDS (21-34) 03/07/17 16:41
[2017-03-07] MEDS ORDERED: Albuterol HFA 90 mcg/actuation (8 g) IH PRN (19:01)
--- NOTE | 2017-03-07 20:02 | RAD ---
PROCEDURE: CHEST RADIOGRAPH, 1 VIEW HISTORY: Chest pain COMPARISON: 03/02/2017. FINDINGS: LUNGS: The lungs are well inflated and clear. PLEURA: No pneumothorax or pleural fluid seen. CARDIOVASCULAR: Normal. OSSEOUS STRUCTURES: No significant abnormalities. VISUALIZED UPPER ABDOMEN: Normal. OTHER FINDINGS: None. IMPRESSION: No active pulmonary disease.
[2017-03-07] MEDS ORDERED: GABAPENTIN ENACARBIL 300 MG PO SCH (22:00)
--- NOTE | 2017-03-08 03:30 | HP ---
CHIEF COMPLAINT: Cold, clammy, and diaphoretic while she was waiting at Dr. Villarreal's office. HISTORY OF PRESENT ILLNESS: Ms. Cornejo is a 72-year-old female with past medical history of hypertension, asthma; history of diverticulitis, status post sigmoid colectomy about 4 years ago; chronic constipation, recent admission to the hospital for ST-elevation IN, status post RCA stent placement on 03/02/2017. Cardiac cath was done by Dr. Diaz and she was discharged home on Friday. The patient visited office on Friday as the patient has been having right lower quadrant abdominal pain, the patient underwent ultrasound, which was reported by family as negative. Since the hospital discharge, she did not have any bowel movement, her last bowel movement was last Friday prior to last hospital admission. She has been in her usual state of health, but this morning, she was in Dr. Villarreal's office for routine evaluation after the stent placement, but while she was at doctor's office, she felt very lightheaded, cold, clammy, and sweaty. She has been having intermittent right and left-sided sharp chest pains under the breast region. She felt tightness some times. As the patient had these symptoms, 911 was called and the patient was transferred to the hospital for further evaluation. In the emergency room, the patient was given fluid and the patient's symptoms improved, the patient was evaluated by Cardiology while she was in ED. When I examined the patient, she denied any headache or dizziness. She was feeling much better, denied any nausea, vomiting, abdominal pain, diarrhea, or constipation, but she has been complaining of minimal right lower quadrant discomfort. Denied any diarrhea, but has not moved her bowel for the past 1 week, but has been able to eat regularly. She thinks she may not be drinking enough fluid. Denies any chest pain. Denies any shortness of breath. All other systems reviewed and were negative. PAST MEDICAL HISTORY: As described; hypertension, asthma, chronic constipation; CAD, and status post stent placement about 5 days ago. PAST SURGICAL HISTORY: RCA stent placement, colon resection for sigmoid diverticulitis, hysterectomy, cataract surgery, detached retina, and carpel tunnel surgery. FAMILY HISTORY: Coronary artery disease in mother and grandmother. Her cousin from CAD at age 53. PERSONAL HISTORY: She is , living alone, having 1 daughter, and retired. SOCIAL HISTORY: Denies smoking, alcohol, or drug abuse. ALLERGIES: NO KNOWN DRUG ALLERGIES. MEDICATIONS: Include Cozaar 25 mg p.o. daily, aspirin 81 mg daily, ProAir 2 puffs q.4 hours p.r.n., Tylenol as needed, Xanax 0.25 mg p.o. daily as needed, Flonase as needed, Colace 200 mg daily as needed, Symbicort, Neurontin 300 mg p.o. at bedtime, metoprolol 25 mg p.o. daily, Crestor 10 mg p.o. at bedtime, Zantac, MiraLax, Micardis, Brilinta 90 mg p.o. b.i.d., and tramadol as needed. REVIEW OF SYSTEMS: As described in history of present illness. All other systems reviewed and were found to be negative. PHYSICAL EXAMINATION: GENERAL: Elderly female, lying in bed, in no acute distress. VITAL SIGNS: Blood pressure 146/70, pulse 67, respirations 20, temperature 98.7 degrees Fahrenheit, and O2 sats 99% on room air. HEENT: Pupils are equal, round and reacting to light and accommodation. Extraocular muscles are intact. No icterus. No pallor. No oral thrush. No pharyngeal congestion. NECK: Supple. No JVD. No thyromegaly. CHEST: Lungs are clear bilaterally on respiration. LUNGS: Bilateral vesicular breath sounds. No wheezing. No rhonchi. CARDIOVASCULAR: S1 and S2 present, regular. ABDOMEN: Soft and nontender. Bowel sounds present. No guarding. No rigidity. No rebound tenderness noted. CRANIAL NERVE SYSTEM: Alert, awake, and oriented x3. No focal deficits noted. EXTREMITIES: No edema. Palpable peripheral pulses. LABORATORY DATA: Labs done from ED; WBC 11.8, hemoglobin 11.9, hematocrit 34.2, and platelets 233. PT 11.6, INR 1.0, and PTT 28. Sodium 134, potassium 3.4, chloride 100, bicarbonate 24, BUN 16, creatinine 0.9, glucose 100, and calcium 9.3. Total bilirubin 1.2. AST 30, ALT 33, and alkaline phosphatase 69. Troponin 0.765. ProBNP 1140, total protein 8.0 and albumin 3.9. Her troponin on 03/03/2017 was 15.7. Chest x-ray, no active pulmonary disease. EKG, no acute EKG changes as per Cardiology, but unable to locate. ASSESSMENT: Elderly female with history of hypertension, hyperlipidemia, chronic constipation, history of diverticulitis, status post colon resection, recent history of ST-elevation myocardial infarction, status post right coronary artery stent placement, admitted for lightheadedness, cold, clammy, and sweaty while she was at primary medical doctors office and the patient is being admitted for further evaluation of her coronary artery disease. 1. Lightheadedness with associated symptoms, probably secondary to vasovagal, rule out acute coronary syndrome in view of her recent history of ST-elevation myocardial infarction, and chronic constipation. 2. History of hypertension. 3. History of hyperlipidemia. 4. History of asthma. PLAN: We will admit the patient to telemetry. We will do serial cardiac enzymes and serial EKGs. We will continue with her cardiac medication; aspirin, Brilinta, metoprolol, and DARYA inhibitor. We will monitor the patient closely. The patient is evaluated by Cardiology while in ED. Discussed with Dr. Diaz, agrees with current plan. We will request [employer] for discharge planning. We will give lactulose 30 mL p.o. at bedtime as needed for constipation. Edmundo Dorman MD
--- NOTE | 2017-03-08 07:17 | CP.PCM.PN ---
Subjective - Date & Time of Evaluation Date of Evaluation: 03/08/17 Time of Evaluation: 07:00 - Subjective Subjective: patient feels anxious. no chest pain Objective - Vital Signs/Intake and Output Vital Signs (last 24 hours): Temp Pulse Resp BP Pulse Ox 100 F H 76 20 115/69 97 03/08/17 04:44 03/08/17 04:44 03/08/17 04:44 03/08/17 04:44 03/07/17 23:40 Intake and Output: 03/08/17 03/08/17 06:59 18:59 Intake Total 120 Balance 120 - Medications Medications: Current Medications Acetaminophen (Tylenol 325mg Tab) 650 mg PO Q6 PRN PRN Reason: Pain, Mild (1-3) Albuterol (Ventolin Hfa 90 Mcg/Actuation (8 G)) 2 puff IH Q4H PRN PRN Reason: Shortness of Breath Alprazolam (Xanax) 0.25 mg PO DAILY PRN PRN Reason: Anxiety Stop: 03/14/17 19:02 Last Admin: 03/07/17 22:17 Dose: 0.25 mg Aspirin (Ecotrin) 81 mg PO DAILY [facility] Docusate Sodium (Colace) 200 mg PO DAILY PRN PRN Reason: Constipation Gabapentin (Neurontin) 300 mg PO DAILY [facility] Home Med (Budesonide/Formoterol Fumarate [Symbicort 80-4.5 Mcg Inhaler]) 2 puff IH Q12H [facility] Home Med (Gabapentin Enacarbil [Horizant]) 300 mg PO HS [facility] Hydrochlorothiazide (Microzide) 12.5 mg PO DAILY [facility] Lactulose (Enulose) 20 gm PO HS PRN PRN Reason: Constipation Losartan Potassium (Cozaar) 50 mg PO DAILY [facility] Metoprolol Succinate (Toprol Xl) 25 mg PO DAILY [facility] Rosuvastatin Calcium (Crestor) 10 mg PO HS [facility] Last Admin: 03/07/17 22:17 Dose: 10 mg Ticagrelor (Brilinta) 90 mg PO BID [facility] Last Admin: 03/07/17 20:05 Dose: 90 mg - Labs Labs: 03/07/17 16:41 03/07/17 16:41 PT 11.6 SECONDS (9.7-12.2) 03/07/17 16:41 INR 1.0 03/07/17 16:41 APTT 28 SECONDS (21-34) 03/07/17 16:41 - Constitutional Appears: Non-toxic - Head Exam Head Exam: NORMAL INSPECTION - Eye Exam Eye Exam: Normal appearance - ENT Exam ENT Exam: Mucous Membranes Moist - Neck Exam Neck Exam: Full ROM - Respiratory Exam Respiratory Exam: Decreased Breath Sounds - Cardiovascular Exam Cardiovascular Exam: REGULAR RHYTHM - GI/Abdominal Exam GI & Abdominal Exam: Normal Bowel Sounds - Rectal Exam Rectal Exam: Deferred - Extremities Exam Extremities Exam: absent: Pedal Edema - Back Exam Back Exam: NORMAL INSPECTION - Neurological Exam Neurological Exam: Alert - Psychiatric Exam Psychiatric exam: Normal Affect - Skin Skin Exam: Normal Color Assessment and Plan (1) CAD (coronary artery disease) Assessment & Plan: s/p VA with RCA stent. maintain Brilinta 90 mg BID, ASA 81 mg daily Status: Acute (2) Dizziness Assessment & Plan: likely element of dehydration. stable for discharge from cardiac standpoint. Status: Acute (3) Hypercholesterolemia Assessment & Plan: statin therapy Status: Acute (4) Hypertension Assessment & Plan: blood pressure control Status: Chronic
[2017-03-08 08:09] LABS: BASO % 0.4 % (0.0-2.0); EOS # 0.4 K/uL (0.0-0.7); EOS % 4.4 % (0.0-4.0); HEMATOCRIT 32.7 % (34.0-47.0); LYMPH # 1.9 K/uL (1.0-4.3); LYMPH % 19.2 % (20.0-40.0); MEAN CELL VOLUME 90.8 fL (81.0-99.0); MEAN CORPUSCULAR HEMOGLOBIN 32.6 pg (27.0-31.0); MEAN CORPUSCULAR HGB CONC 35.9 g/dL (33.0-37.0); MEAN PLATELET VOLUME 8.9 fL (7.2-11.7); MONO # 1.1 K/uL (0.0-0.8); MONO % 11.6 % (0.0-10.0); RED CELL DISTRIBUTION WIDTH 13.1 % (11.5-14.5); WHITE BLOOD COUNT 9.8 K/uL (4.8-10.8)
[2017-03-08 08:32] LABS: CHLORIDE 100 mmol/L (98-107); POTASSIUM 2.9 mmol/L (3.6-5.2); SODIUM 134 mmol/L (132-148)
[2017-03-08 08:34] LABS: BILIRUBIN,TOTAL 1.6 mg/dL (0.2-1.3); CARBON DIOXIDE 24 mmol/L (22-30); GFR AFRICAN-AMERICAN > 60
[2017-03-08 08:35] LABS: ALB/GLOB RATIO 1.1 (1.0-2.1); ALKALINE PHOSPHATASE 63 U/L (38-126); ALT/SGPT 26 U/L (9-52); AST/SGOT 27 U/L (14-36); BLOOD UREA NITROGEN 13 mg/dL (7-17); CALCIUM 8.8 mg/dl (8.6-10.4); GLUCOSE,RANDOM 110 mg/dL (65-105)
[2017-03-08 09:06] LABS: MAGNESIUM 1.6 mg/dL (1.6-2.3)
[2017-03-08] MEDS: Metoprolol Succinate 25 mg XL Tab PO SCH (09:22)
[2017-03-08] MEDS ORDERED: Potassium Chloride 20 mEq ER Tab PO ONE (10:00)
[2017-03-08] MEDS ORDERED: Alum-Mag Hydrox-Simethicone Susp (30 mL) PO ONE (17:00)
--- NOTE | 2017-03-08 17:03 | CP.PCM.PN ---
Subjective - Date & Time of Evaluation Date of Evaluation: 03/08/17 Time of Evaluation: 16:30 - Subjective Subjective: Progress note dictated #[id number] Objective - Vital Signs/Intake and Output Vital Signs (last 24 hours): Temp Pulse Resp BP Pulse Ox 98.6 F 78 20 125/65 95 03/08/17 08:38 03/08/17 08:38 03/08/17 08:38 03/08/17 08:38 03/08/17 08:38 Intake and Output: 03/08/17 03/08/17 06:59 18:59 Intake Total 120 Balance 120 - Medications Medications: Current Medications Acetaminophen (Tylenol 325mg Tab) 650 mg PO Q6 PRN PRN Reason: Pain, Mild (1-3) Albuterol (Ventolin Hfa 90 Mcg/Actuation (8 G)) 2 puff IH Q4H PRN PRN Reason: Shortness of Breath Alprazolam (Xanax) 0.25 mg PO DAILY PRN PRN Reason: Anxiety Stop: 03/14/17 19:02 Last Admin: 03/07/17 22:17 Dose: 0.25 mg Aspirin (Ecotrin) 81 mg PO DAILY [facility] Last Admin: 03/08/17 09:21 Dose: 81 mg Docusate Sodium (Colace) 200 mg PO DAILY PRN PRN Reason: Constipation Last Admin: 03/08/17 13:21 Dose: 200 mg Home Med (Budesonide/Formoterol Fumarate [Symbicort 80-4.5 Mcg Inhaler]) 2 puff IH Q12H [facility] Home Med (Gabapentin Enacarbil [Horizant]) 300 mg PO [facility] Hydrochlorothiazide (Microzide) 12.5 mg PO DAILY [facility] Last Admin: 03/08/17 09:21 Dose: 12.5 mg Lactulose (Enulose) 20 gm PO HS PRN PRN Reason: Constipation Losartan Potassium (Cozaar) 50 mg PO DAILY [facility] Last Admin: 03/08/17 09:21 Dose: 50 mg Metoprolol Succinate (Toprol Xl) 25 mg PO DAILY [facility] Last Admin: 03/08/17 09:22 Dose: 25 mg Rosuvastatin Calcium (Crestor) 10 mg PO [facility] Last Admin: 03/07/17 22:17 Dose: 10 mg Ticagrelor (Brilinta) 90 mg PO BID [facility] Last Admin: 03/08/17 09:20 Dose: 90 mg - Labs Labs: 03/08/17 07:55 03/08/17 07:55 PT 11.6 SECONDS (9.7-12.2) 03/07/17 16:41 INR 1.0 03/07/17 16:41 APTT 28 SECONDS (21-34) 03/07/17 16:41
[2017-03-08] MEDS: Potassium Chloride 20 mEq ER Tab PO SCH ×2 (17:44→22:16)
[2017-03-08 18:42] LABS: CHLORIDE 99 mmol/L (98-107); SODIUM 133 mmol/L (132-148)
[2017-03-08 18:43] LABS: POTASSIUM 3.5 mmol/L (3.6-5.2)
[2017-03-08 18:45] LABS: BLOOD UREA NITROGEN 16 mg/dL (7-17); CARBON DIOXIDE 22 mmol/L (22-30); GFR AFRICAN-AMERICAN > 60
[2017-03-08 18:46] LABS: CALCIUM 9.2 mg/dl (8.6-10.4); GLUCOSE,RANDOM 100 mg/dL (65-105)
[2017-03-08] MEDS ORDERED: Fluticasone-Salmeterol 250-50mcg Diskus IH SCH (20:00)
--- NOTE | 2017-03-08 20:53 | PN ---
DATE: 03/08/2017 SUBJECTIVE: The patient was seen and examined at bedside. The patient is feeling slightly better, but still complaining of not having any bowel movements, complaining of nausea, abdominal discomfort, and low back pain. Requesting for pain medication. Denies any chest pain. PHYSICAL EXAMINATION: GENERAL: Elderly female, lying in bed, in no acute distress. VITAL SIGNS: Blood pressure 125/65, pulse 78, respirations 20, temperature 98.6 degrees Fahrenheit, O2 saturations 95% on room air. HEENT: Pupils equal, round, reacting to light and accommodation. Extraocular muscles intact. No icterus. No pallor. No oral thrush. No pharyngeal congestion. NECK: Supple. No JVD. LUNGS: Bilateral vesicular breath sounds. No wheezing. No rhonchi. CARDIOVASCULAR: S1 and S2 present, regular. ABDOMEN: Soft and nontender. Bowel sounds present. No guarding. No rigidity. No rebound tenderness noted. CENTRAL NERVOUS SYSTEM: Alert, awake and oriented x3. No focal deficits noted. EXTREMITIES: No edema. Palpable peripheral pulses. MEDICATIONS: Include Tylenol as needed, Xanax 0.25 mg daily, aspirin 81 mg daily, Colace 200 mg daily, Neurontin 300 p.o. b.i.d., hydrochlorothiazide 12.5 mg daily, lactulose 20 mg at bedtime, losartan 50 mg daily, metoprolol 25 mg daily, Crestor 10 mg at bedtime, Advair Diskus, Brilinta 90 mg p.o. b.i.d., and tramadol 50 p.o. q.6 p.r.n. LABORATORY DATA: Labs from this morning WBC 9.8, hemoglobin 11.7, hematocrit 32.7, and platelets 228. Sodium 134, potassium 2.9, chloride 100, bicarbonate 24, BUN 13, creatinine 0.8, glucose 110, calcium 8.8, magnesium 1.6. Total bilirubin 1.6. AST 27, ALT 26, and alkaline phosphatase 63. Troponin 0.5620, repeat one 0.4260. Chest x-ray negative for any infiltrate. ASSESSMENT AND PLAN: Elderly female with history of hypertension, chronic constipation, asthma, history of diverticulitis, status post sigmoid colectomy, history of coronary artery disease, recent admission for ST-elevation myocardial infarction, status post right coronary artery stent placement 5 days ago admitted for lightheadedness, cold clammy symptoms, possible vasovagal, and constipation. The patient is found to be having hypokalemia. The patient is evaluated by cardiology and no acute coronary syndrome. As noted, the patient could not tolerate IV potassium and it was switched to p.o. The patient is still not having bowel movement. We will give lactulose one dose today and give Maalox for abdominal discomfort and dyspepsia symptoms. We will repeat BMP, follow potassium level, supplement magnesium, repeat BMP in a.m. If the patient is feeling better and have bowel movement, we will plan discharging the patient home in a.m. Edmundo Dorman MD
[2017-03-08] MEDS: Magnesium Oxide 400 mg Tab UD PO SCH (22:16)
[2017-03-09 00:47] LABS: RBC URINE 2 /hpf (0-3); URINE BILIRUBIN NEGATIVE (NEGATIVE); URINE BLOOD NEGATIVE (NEGATIVE); URINE COLOR Yellow (YELLOW); URINE GLUCOSE (UA) NORMAL (Normal); URINE KETONE TRACE mg/dL (NEGATIVE); URINE LEUKOCYTE ESTERASE TRACE Leu/uL (Negative); URINE PROTEIN NEGATIVE (NEGATIVE); WBC URINE 10 /hpf (0-5)
[2017-03-09 08:41] LABS: CHLORIDE 101 mmol/L (98-107); POTASSIUM 4.3 mmol/L (3.6-5.2); SODIUM 133 mmol/L (132-148)
[2017-03-09 08:43] LABS: GFR AFRICAN-AMERICAN > 60
[2017-03-09 08:44] LABS: BLOOD UREA NITROGEN 17 mg/dL (7-17); CALCIUM 8.9 mg/dl (8.6-10.4); CARBON DIOXIDE 22 mmol/L (22-30); GLUCOSE,RANDOM 90 mg/dL (65-105)
[2017-03-09 08:57] VITALS: TEMP 98.9
[2017-03-09] MEDS: Magnesium Oxide 400 mg Tab UD PO SCH (10:00)
[2017-03-09] MEDS: Metoprolol Succinate 25 mg XL Tab PO SCH (10:00)
--- NOTE | 2017-03-09 14:14 | CP.PCM.PN ---
Subjective - Date & Time of Evaluation Date of Evaluation: 03/09/17 Time of Evaluation: 14:20 - Subjective Subjective: Discharge summary dictated #[id number] Objective - Vital Signs/Intake and Output Vital Signs (last 24 hours): Temp Pulse Resp BP Pulse Ox 98.9 F 75 18 114/68 94 L 03/09/17 07:25 03/09/17 07:30 03/09/17 07:25 03/09/17 07:25 03/09/17 07:25 Intake and Output: 03/09/17 03/09/17 06:59 18:59 Intake Total 10 Balance 10 - Medications Medications: Current Medications Acetaminophen (Tylenol 325mg Tab) 650 mg PO Q6 PRN PRN Reason: Pain, Mild (1-3) Albuterol (Ventolin Hfa 90 Mcg/Actuation (8 G)) 2 puff IH Q4H PRN PRN Reason: Shortness of Breath Alprazolam (Xanax) 0.25 mg PO DAILY PRN PRN Reason: Anxiety Stop: 03/14/17 19:02 Last Admin: 03/09/17 10:00 Dose: 0.25 mg Aspirin (Ecotrin) 81 mg PO DAILY [facility] Last Admin: 03/09/17 10:00 Dose: 81 mg Docusate Sodium (Colace) 200 mg PO DAILY PRN PRN Reason: Constipation Last Admin: 03/09/17 06:41 Dose: 200 mg Gabapentin (Neurontin) 300 mg PO BID [facility] Last Admin: 03/09/17 10:00 Dose: 300 mg Hydrochlorothiazide (Microzide) 12.5 mg PO DAILY [facility] Last Admin: 03/09/17 10:00 Dose: 12.5 mg Lactulose (Enulose) 20 gm PO HS PRN PRN Reason: Constipation Losartan Potassium (Cozaar) 50 mg PO DAILY [facility] Last Admin: 03/09/17 10:00 Dose: 50 mg Magnesium Oxide (Mag-Ox) 400 mg PO BID [facility] Stop: 03/11/17 18:16 Last Admin: 03/09/17 10:00 Dose: 400 mg Metoprolol Succinate (Toprol Xl) 25 mg PO DAILY [facility] Last Admin: 03/09/17 10:00 Dose: 25 mg Rosuvastatin Calcium (Crestor) 10 mg PO HS [facility] Last Admin: 03/08/17 22:19 Dose: 10 mg Fluticasone/Salmeterol (Advair Diskus 250/50) 1 puff IH RQ12 JO Ticagrelor (Brilinta) 90 mg PO BID [facility] Last Admin: 03/09/17 10:08 Dose: 90 mg Tramadol HCl (Ultram) 50 mg PO Q6H PRN PRN Reason: Pain, severe (8-10) - Labs Labs: 03/08/17 07:55 03/09/17 08:16 PT 11.6 SECONDS (9.7-12.2) 03/07/17 16:41 INR 1.0 03/07/17 16:41 APTT 28 SECONDS (21-34) 03/07/17 16:41
[2017-03-09] MEDS ORDERED: Alum-Mag Hydrox-Simethicone Susp (30 mL) PO ONE (15:52)
--- NOTE | 2017-03-09 16:58 | DS ---
DISCHARGE DIAGNOSES: 1. Chronic constipation. 2. Lightheadedness secondary to possible vasovagal etiology. 3. History of hypertension. 4. History of hyperlipidemia. 5. History of asthma. 6. Recent history of ST-segment elevated myocardial infarction and right coronary artery stent placement and coronary artery disease. HISTORY OF PRESENT ILLNESS: The patient is a 72-year-old female with past medical history of hypertension; asthma; hyperlipidemia; diverticulitis, status post sigmoid colectomy; chronic constipation; resent admission for ST-elevation [place], status post RCA stent placement, came into ED with symptoms of lightheadedness; diaphoresis and cold clammy symptoms while she was at PMDs office. In the ED, the patient was evaluated and admitted for rule out stenosis of the stent. Today, the patient is feeling much better. Denies any headache, dizziness. Denies any chest pain, shortness of breath or wheezing. Denies any nausea, vomiting, abdominal pain. She had bowel movement this morning and has been having few further bowel movements, feeling better. Denies any neurologic symptoms. Denies any urinary symptoms. PHYSICAL EXAMINATION: GENERAL: Elderly female, lying in bed, in no acute distress. VITAL SIGNS: Blood pressure 114/68, pulse 78, respirations 18, temperature 98.9 degrees Fahrenheit, and O2 saturation 94% on room air. HEENT: Pupils equal, round and reactive to light and accommodation. Extraocular muscles intact. No icterus, no pallor. No oral thrush. No pharyngeal congestion. NECK: Supple. No JVD. LUNGS: Bilateral vesicular breath sounds. No wheezing. No rhonchi. CARDIOVASCULAR SYSTEM: S1 and S2 present, regular. ABDOMEN: Soft and nontender. Bowel sounds present. No guarding. No rigidity. No rebound tenderness noted. GREASE MAN: Alert, awake and oriented x3. No focal deficits noted. EXTREMITIES: No edema. Palpable peripheral pulses. LABORATORY DATA: Labs done from this morning; WBC 9.8, hemoglobin 11.7, hematocrit 32.7, platelets 228. Sodium 133, potassium 4.3, chloride 101, bicarbonate 22, BUN 17, creatinine 0.9, glucose 90, calcium 8.9. Her potassium yesterday was 2.9 and 3.5. UA: Specific gravity 1.024, pH 6.0, urobilinogen 4.0, wbc 10, otherwise negative. HOSPITAL COURSE: The patient was admitted to the hospital to rule out any stenosis of the stent. The patient had serial troponins done which were trending down. The patient was evaluated by cardiology. The patient was cleared by cardiology from cardiac standpoint. As the patient claimed that she did not have bowel movement in a week, the patient was given lactulose. The patient refused taking lactulose yesterday, but feed up this morning and had good bowel movement, feeling better. As the patient is, however, hemodynamically stable, and her potassium was corrected with p.o. medication, I advised the patient to follow up with her PMD, cardiology and GI as outpatient, and advised to return to ED if any recurrent symptoms or worsening symptoms. CONDITION UPON DISCHARGE: The patient is alert, awake, oriented x3 and hemodynamically stable. DISCHARGE INSTRUCTIONS: Followup with PMD, followup with cardiology, followup with GI as outpatient. DISCHARGE DIET: Heart-healthy low-cholesterol diet. DISCHARGE MEDICATIONS: Include; aspirin 81 mg daily, Colace 200 mg daily, Neurontin 300 mg b.i.d., hydrochlorothiazide 12.5 mg daily, lactulose as needed, losartan 50 mg daily, magnesium oxide 400 mg b.i.d., Toprol-XL 25 mg daily, Crestor 10 mg p.o. at bedtime, Brilinta 90 mg p.o. b.i.d., and tramadol 50 mg p.o. q.6 p.r.n. Edmundo Dorman MD
[2017-03-09 16:59] VITALS: BP 119/69; PULSE 76; RESP 20; O2SAT 96
== END 2017-03-09 18:15 | disposition home or self-care (01) ==
LOC: C.ER 15:32 → C.9E 17:44 → C.6T 19:32
PROVIDERS: ADMIT Internal Medicine; ATTEND Internal Medicine
DX: K59.09 Other constipation (principal); R55 Syncope and collapse; E78.00 Pure hypercholesterolemia, unspecified; E78.5 Hyperlipidemia, unspecified; E86.0 Dehydration; E87.6 Hypokalemia
CPT/HCPCS: 36415; 71010; 80048; 80053; 81001; 83735; 83880; 84484; 85025; 85610; 85730; 99285; G0378; J3480